=== PATIENT | male | born 1945 | race Caucasian/White ===

== ENCOUNTER 2018-12-24 11:07 | Observation (INO) ==
[2018-12-24] MEDS ORDERED: Ipratropium/Albuterol Neb 3 ML ONE (11:16)
[2018-12-24] MEDS ORDERED: Piperacillin/Tazobactam 3.375 GM in 0.9 % Sodium Chloride Mini Bag 100 ML IVPB ONE (11:22)
[2018-12-24] MEDS ORDERED: Ipratropium/Albuterol Neb 3 ML IH ONE (11:22)
[2018-12-24] MEDS ORDERED: Dexamethasone 4 MG/ML VIAL IVP ONE (11:22)
--- NOTE | 2018-12-24 11:25 | Emergency Department Note ---
Disposition Clinical Impression: Acute exacerbation of chronic obstructive airways disease, Hypoxemia, Respiratory distress Disposition: Admitted As Inpatient Condition: Fair Forms: ED Satisfaction Letter Time of Disposition: 12:41 General Adult HPI - General Chief complaint: ED Shortness of Breath/Dyspnea Stated complaint: MITCH Time Seen by Provider: 12/24/18 11:19 Source: patient Nursing Notes Reviewed: Yes Vital Signs Reviewed: Yes - History of Present Illness HPI Narrative: I did see the patient immediately upon arrival and also spoke with the patient's and he has a history of COPD and does use 3 L nasal cannula oxygen at home and presented with a reported oxygen saturation of 56% on 5 L nasal cannula as he has recently increased his oxygen use. He does have 3 days of shortness of breath gradually worsening constant worse with exertion and he denies orthopnea. Does have chronic lower extremity edema which is not worsened. No recent weight gain but has had some weight loss. Did have Doppler studies this spring to look for DVT which was negative. He was scheduled to see the elevator erector today. He denies any chest pain or tightness or discomfort or pressure. Does feel sinus drainage. No hemoptysis. Social history: Smoker Pain Scale: 0 - Related Data Home Medications Medication Instructions Recorded Confirmed Albuterol Neb [Proventil Neb] 2.5 mg IH Q6H 04/23/18 11/12/18 Albuterol Sulfate [Ventolin Hfa] 2 puff IH Q4H PRN 04/23/18 11/12/18 Atorvastatin [Lipitor] 80 mg PO HS 04/23/18 11/12/18 Fluticasone Propionate Nasal 27.5 mcg NS DAILY 04/23/18 11/12/18 [Flonase] Metoprolol Succinate 50 mg PO DAILY 04/23/18 11/12/18 Omeprazole [PriLOSEC] 40 mg PO DAILY 04/23/18 11/12/18 Tamsulosin [Flomax] 0.4 mg PO DAILY 07/14/18 11/12/18 Lisinopril [Zestril] 10 mg PO DAILY 11/12/18 11/12/18 Allergies Allergy/AdvReac Type Severity Reaction Status Date / Time No Known Allergies Allergy Verified 11/12/18 11:17 Review of Systems: Constitutional: No fever Vision: No blurred vision ENT: + rhinorrhea Respiratory: + cough Allergic: No allergies : No blood in urine GI: No blood in stool Hematologic: No new bruising Dermatologic: No skin rash Musculoskeletal: No pain in the extremities Neuro: No new numbness of the extremities Past Medical History - Past Medical History Medical history: Reports: COPD, coronary artery disease, hypertension, myocardial infarction, other Surgical history: Reports: colectomy, coronary bypass (CABG), other Psychiatric history: Reports: no psych history - Social History Smoking Status: Current every day smoker Smokeless Tobacco Status: No Alcohol use: Reports: none Drug use: Reports: none Physical Exam CONSTITUTIONAL: Alert and oriented X3, thin, moderate to severe respiratory distress with significant hypoxemia HEAD: Normocephalic; atraumatic. EYES: PERRL, no scleral icterus. NOSE: The nose is normal in appearance without rhinorrhea RESP: Normal chest excursion with respiration; breath sounds with bilateral symmetric coarse crackles and wheezing CARD: Regular rhythm, without murmurs, rub or gallop ABD: Non-distended; non-tender, soft,without rigidity, rebound or guarding SKIN: Normal for age and race; warm and dry; no apparent lesions EXTREMITIES: Pulses are 2 plus and equal times 4 extremities, bilateral lower extremity symmetric pretibial pitting peripheral edema, no calf muscle pain, no erythema or signs of infection - General General appearance: alert Course Vital Signs Temperature 97.6 F 12/24/18 11:12 Pulse Rate 70 12/24/18 11:12 Respiratory Rate 12/24/18 11:12 Blood Pressure 192/92 12/24/18 11:12 O2 Sat by Pulse Oximetry 100 12/24/18 11:12 Temperature 97.6 F 12/24/18 11:12 Pulse Rate 69 12/24/18 12:04 Respiratory Rate 12/24/18 12:04 Blood Pressure 164/94 12/24/18 12:04 O2 Sat by Pulse Oximetry 100 12/24/18 12:04 Oxygen Delivery Oxygen Delivery Simple Mask Medical Decision Making - MDM Narrative Medical decision making narrative: Symptoms most consistent with COPD exacerbation however on EKG there is evidence of new inferior ischemia compared to a previous EKG from 10/16/2012. Current EKG shows normal sinus rhythm with rate of [address] depression and T- wave inversion concerning for inferior ischemia. The patient receives 3 duo nebs, Decadron, and because he has been receiving antibiotics 2 or 3 times a month I did place him on Zosyn and vancomycin. No recent health admissions. The patient will be admitted to the hospital. On 100% nonrebreather mask he quickly improved to an oxygen saturation of 100% so we decreased and to 40% and he is still satting at 99%. Patient will be admitted. 1126 I did review the patient's previous record including the oncology notes, I have reviewed the patient's labs and chest x-ray showing infiltrate versus atelectasis. The patient's troponin is negative. Renal function is fine. BNP is elevated however he said his lower extremity swelling is chronic and the yosef ent does not have other findings concerning for congestive heart failure. I am not able to find a recent echocardiogram in the record however this is something that certainly could be further evaluated in the hospital and the patient will be admitted and I did speak with the hospitalist who accepted the patient for admission. TheentireclinicalpictureismostsuggestiveofCOPDexacerbationparticularly withhispostnasaldripandcoughandhypoxemiasowewilladmitandtrytoimprovethepatient's symptoms.Icheckedonhermultipletimesandheisimproved. 1240 - Medical Records Medical records reviewed: Yes I reviewed the patient's medical records. - Lab Data Lab results reviewed: Yes I reviewed the patient's lab results. Result diagrams: 12/24/18 11:15 12/24/18 11:15 Lab Results 12/24/18 12/24/18 12/24/18 Range/Units 11:15 11:15 11:15 WBC 4.1 L (4.3-11.1) K/mcL RBC 4.65 (4.19-5.50) M/mcL Hgb 13.1 (12.9-16.9) g/dL Hct 42.6 (37.5-50.1) % MCV 91.6 (83.0-100.0) fL MCH 28.2 (28.0-33.3) pg MCHC 30.8 L (31.6-35.5) g/dL RDW 13.6 (11.5-14.5) % Plt Count 106 L (140-400) K/mcL MPV 11.4 (9.4-12.4) fL Sodium 141 (136-145) mEq/L Potassium 4.8 (3.5-5.1) mEq/L Chloride 95 L (98-107) mEq/L Carbon Dioxide 43 H* (23-29) mEq/L BUN 19 (8-23) mg/dL Creatinine 1.16 (0.70-1.30) mg/dL Est GFR ( Amer) > 60 (> 60) Est GFR (Non-Af Amer) > 60 (> 60) BUN/Creatinine Ratio 16 (6-26) Glucose 137 H (70-105) mg/dL Calculated Osmolality 296 (280-300) Calcium 9.5 (8.6-10.3) mg/dL Troponin I < 0.03 (< 0.04) ng/mL B-Natriuretic Peptide 1111 H (Less than 100) pg/mL - Radiology Data Radiology results reviewed: Yes I reviewed the patient's radiology results. Critical Care Time Critical Care Time: Yes Total Critical Care Time: 30 Attestation: 30 minutes of critical care time was spent with this patient with severe respiratory distress, hypoxemia with an oxygen saturation of 56% even while on 5 L nasal cannula and assessment of the patient's test results, repeated visits to see the patient, discussion with hospitalist
[2018-12-24 11:32] LABS: Hematocrit 42.6 % (37.5-50.1); Hemoglobin 13.1 g/dL (12.9-16.9); Mean Corpuscular HGB Conc 30.8 g/dL (31.6-35.5); Mean Corpuscular Hemoglobin 28.2 pg (28.0-33.3); Mean Corpuscular Volume 91.6 fL (83.0-100.0); Mean Platelet Volume 11.4 fL (9.4-12.4); Platelet Count 106 K/mcL (140-400); Red Blood Count 4.65 M/mcL (4.19-5.50); Red Cell Distribution Width 13.6 % (11.5-14.5); White Blood Count 4.1 K/mcL (4.3-11.1)
[2018-12-24 12:03] LABS: BUN/Creatinine Ratio 16 (6-26); Blood Urea Nitrogen 19 mg/dL (8-23); Calcium 9.5 mg/dL (8.6-10.3); Carbon Dioxide 43 mEq/L (23-29); Chloride 95 mEq/L (98-107); Glucose 137 mg/dL (70-105); Osmolality,Calculated 296 (280-300); Potassium 4.8 mEq/L (3.5-5.1); Sodium 141 mEq/L (136-145); Troponin I < 0.03 ng/mL (< 0.04); eGFR For African Americans > 60 (> 60); eGFR For Non-African Americans > 60 (> 60)
[2018-12-24] MEDS ORDERED: Naloxone 0.4 MG/ML INJ IVP PRN (14:05)
[2018-12-24] MEDS ORDERED: Ondansetron 4 MG/2 ML VIAL IVP PRN (14:05)
[2018-12-24] MEDS ORDERED: *HR* Promethazine 25 MG/ML VIAL IVP PRN ×2 (14:05→14:16)
[2018-12-24] MEDS ORDERED: Mag Hydrox/Al Hydrox/Simeth 30 ML UDC PO PRN (14:05)
[2018-12-24] MEDS ORDERED: MOM Conc 10 ML UD.LIQ PO PRN (14:05)
[2018-12-24] MEDS ORDERED: Ipratropium/Albuterol Neb 3 ML IH PRN (14:10)
--- NOTE | 2018-12-24 14:56 | Internal Med History&Physical ---
Date of Encounter: 12/24/18 Time of Encounter: 14:55 Internal Medicine - H&P: HPI Chief complaint: SOB Admitted From: Home Plans for Post Hospital Care: Home History of present illness: Mr. Macias is a 73 year old male 's past medical history of COPD, CAD status post CABG, hypertension, and chronic sinusitis presented with 4 day history of some shortness of breath. He has history of COPD and a contralateral treated with albuterol inhaler plus home oxygen. He also reported history of CAD status post CABG. His symptoms started insidiously, with absence of chest pain, cough, sputum production, palpitation, lightheadedness, or syncope. He also reported absence of fever, chills, or night sweats. He had chronic leg swelling which has been slightly worsened than usual in the past couple days. He denies history of heart failure and an never been worked up for congestive heart regular. In the ED, his vital signs was notable for slightly elevated CO2, negative troponin, significantly elevated BNP. Chest x-ray revealed possible infiltrate with bilateral small pleural effusion. Patient received IV antibiotics, and will be admitted for further evaluation. CODE STATUS discussed with patient, he wishes to be full code. Past Med Surg Social Fam HX - Past Medical History Medical history: COPD, coronary artery disease, hypertension, myocardial infarction, other Psychiatric history: no psych history - Past Surgical History Surgical History: colectomy, coronary bypass (CABG), other Additional surgical history: triple bypass 2012 - Social History Smoking Status: Current every day smoker Smokeless Tobacco Status: No Alcohol use: none Drug use: none Internal Medicine - H&P: Meds Albuterol Neb [Proventil Neb] 2.5 mg IH Q6H 04/23/18 [History] Albuterol Sulfate [Ventolin Hfa] 2 puff IH Q4H PRN 04/23/18 [History] Atorvastatin [Lipitor] 80 mg PO HS 04/23/18 [History] Fluticasone Propionate Nasal [Flonase] 27.5 mcg NS DAILY 04/23/18 [History] Metoprolol Succinate 50 mg PO DAILY 04/23/18 [History] Omeprazole [PriLOSEC] 40 mg PO DAILY 04/23/18 [History] Tamsulosin [Flomax] 0.4 mg PO DAILY 07/14/18 [History] Lisinopril [Zestril] 10 mg PO DAILY 11/12/18 [History] Aspirin [Lo-Dose Aspirin EC] 81 mg pe PO DAILY 12/24/18 [History] Allergy/AdvReac Type Severity Reaction Status Date / Time No Known Allergies Allergy Verified 11/12/18 11:17 All Systems PM: A 10-system review of systems was performed and is negative for pertinent find ings except as documented above in the HPI. Review of systems: REVIEW OF SYSTEMS: CONSTITUTIONAL: No weight loss, fever, chills, weakness or fatigue. HEENT: Eyes: No visual loss, blurred vision, double vision or yellow sclerae. Ears, Nose, Throat: No hearing loss, sneezing, congestion, runny nose or sore throat. SKIN: No rash or itching. CARDIOVASCULAR: No chest pain, chest pressure or chest discomfort. No palpitations or edema. RESPIRATORY: see HPI. GASTROINTESTINAL: No anorexia, nausea, vomiting or diarrhea. No abdominal pain or blood. GENITOURINARY: No dysuria, urgency, or frequency. NEUROLOGICAL: No headache, dizziness, syncope, paralysis, ataxia, numbness or tingling in the extremities. No change in bowel or bladder control. MUSCULOSKELETAL: No muscle, back pain, joint pain or stiffness. HEMATOLOGIC: No anemia, bleeding or bruising. LYMPHATICS: No enlarged nodes. No history of splenectomy. PSYCHIATRIC: No history of depression or anxiety. ENDOCRINOLOGIC: No reports of sweating, cold or heat intolerance. No polyuria or polydipsia. - Constitutional Vitals: Temp Pulse Resp BP Pulse Ox 97.8 F 74 15 147/73 97 12/24/18 14:09 12/24/18 14:09 12/24/18 14:09 12/24/18 14:09 12/24/18 14:09 General appearance: Present: A&O X 3 Exam: PHYSICAL EXAMINATION: GENERAL APPEARANCE: The patient is alert, oriented and in no acute distress. HEENT: Head is normocephalic. The sinuses are nontender. Pupils are equal and reactive. The nares are patent. Oropharynx clear without lesions. NECK: Supple without lymphadenopathy. HEART: Regular rate and rhythm. LUNGS: No crackles or wheezes are heard. ABDOMEN: Soft, nontender, nondistended with good bowel sounds heard. Inguinal area is normal. EXTREMITIES: 2+ pitting edema at both legs. NEUROLOGICAL: Gross nonfocal. SKIN: Warm and dry without any rash. Internal Med - H&P Results - Labs CBC & Chem 7: 12/24/18 11:15 12/24/18 11:15 Labs: Short CBC 12/24/18 Range/Units 11:15 WBC 4.1 L (4.3-11.1) K/mcL Hgb 13.1 (12.9-16.9) g/dL Hct 42.6 (37.5-50.1) % Plt Count 106 L (140-400) K/mcL BMP 12/24/18 11:15 Sodium 141 Potassium 4.8 Chloride 95 L Carbon Dioxide 43 H* BUN 19 Creatinine 1.16 Glucose 137 H Calcium 9.5 Cardiac Enzymes 12/24/18 Range/Units 11:15 Troponin I < 0.03 (< 0.04) ng/mL - Impressions ITS Impressions Chest X-Ray 12/24/18 11:21 IMPRESSION: Mild patchy/streaky bibasilar opacities concerning for atelectasis or developing infiltrates along with superimposed small bilateral pleural effusions, new from prior CT chest 07/28/2018. Clinical correlation and continued follow-up suggested. Small bilateral pulmonary nodules noted on prior CT chest not well demonstrated on this portable chest x-ray. Reference to the prior exam can be made for additional information and management recommendations. COPD. D/ / 12/24/2018 11:39:22 Adriano Saxena MD / [email or web address] Interpreting Provider: Adriano Saxena MD - Assessment and Plan (1) Acute respiratory failure Current Visit: Yes Status: Acute Assessment and plan: 73-year-old male with history of COPD, CAD status post CABG, and hypertension presented with 4 day history of acute dyspnea on exertion with associated bilateral leg swelling. Labs showed a significantly elevated CO2 and BNP, chest x-ray showed possible infiltrate with small bilateral pleural effusion. He will have a history of COPD, coronary treated with albuterol inhaler plus home oxygen. He reported chronic bilateral leg swelling but denies history of heart failure. - We will order a stat ABG, given significantly elevated CO2 level, and he only takes albuterol and oxygen at home, his COPD likely undertreated. We will start the patient on DuoNeb with scheduled dose and as needed dose, started patient on IV steroids, empirically started on IV antibiotics pending infection workup. He also likely will be placed on maintenance treatment such as Symbicort before discharge. He will also be benefited from follow up with pulmonology as outpatient. - Given significantly elevated BNP, we will will order echocardiogram to rule out undiagnosed heart failure. However, on physical exam, his lung sounds seem clear, in that case, workup for pulmonary hypertension will be warranted as well. - We will also order BiPAP scheduled and as needed. Qualifiers: Respiratory failure complication: hypoxia and hypercapnia Qualified Code(s): J96.01 - Acute respiratory failure with hypoxia; J96.02 - Acute respiratory failure with hypercapnia (2) Acute exacerbation of chronic obstructive airways disease Current Visit: Yes Status: Acute Assessment and plan: Same as above. (3) CAD (coronary artery disease) Current Visit: No Status: Acute Assessment and plan: Patient has no chest pain, first set of troponin negative, we will continue cycling troponin, telemetry monitoring, EKG as needed. Continue home medications Qualifiers: Coronary Disease-Associated Artery/Lesion type: [place] artery [place] vs. transplanted heart: [place] heart Associated angina: without angina Qualified Code(s): I25.10 - Atherosclerotic heart disease of [place] coronary artery without angina pectoris (4) HTN (hypertension) Current Visit: No Status: Chronic Assessment and plan: Continue home medication, adjust the dose if indicated. Qualifiers: Hypertension type: essential hypertension Qualified Code(s): I10 - Essential (primary) hypertension (5) DVT prophylaxis Current Visit: Yes Status: Acute Assessment and plan: Heparin subcutaneous. - Time Spent With Patient Total time spent is greater than 50% in coordination of care (as documented) at patient's floor/unit and/or counseling patient: Greater than 35 minutes
[2018-12-24] MEDS ORDERED: Azithromycin 500 MG in D5% in Water 250 ML IVPB SCH (15:00)
[2018-12-24] MEDS ORDERED: cefTRIAXone 2,000 MG in Water for inj. (sterile) 20 ML IVP SCH (15:00)
[2018-12-24] MEDS: MethylPREDNISolone 40 MG/ML VIAL IVP SCH (15:41)
[2018-12-24] MEDS: Furosemide 20 MG/2 ML VIAL IVP SCH (15:42)
[2018-12-24] MEDS: Ipratropium/Albuterol Neb 3 ML IH SCH ×3 (16:04→23:29)
[2018-12-24 16:07] LABS: ABG Base Excess 11 mEq/L (-2 to 3); ABG HCO3 39 mEq/L (21-27); ABG Oxygen Saturation 96 % (95-98); ABG PCO2 67 mmHg (35-45); ABG PH 7.37 pH Units (7.32-7.45); ABG PO2 87 mmHg (85-104); ABG TCO2 41 mEq/L (20-26)
[2018-12-24 16:37] LABS: Bilirubin,Urine Negative (Negative); Blood,Urine Small (Negative); Clarity,Urine Clear (Clear); Color,Urine Yellow (Yellow); Glucose,Urine (UA) 100 mg/dL (Normal); Ketones,Urine Negative (Negative); Leukocyte Esterase,Urine Negative (Negative); Nitrite,Urine Negative (Negative); Protein,Urine >=300 mg/dL (Neg-Trace); Specific Gravity,Urine 1.028 (1.010-1.025); Urobilinogen,Urine Normal (Normal)
[2018-12-24] MEDS: *HR* Heparin 5,000 UNIT/ML VIAL SQ SCH (16:47)
[2018-12-24] MEDS ORDERED: Furosemide 20 MG/2 ML VIAL IVP SCH (21:00)
[2018-12-25] MEDS: MethylPREDNISolone 40 MG/ML VIAL IVP SCH ×3 (03:24→16:04)
[2018-12-25] MEDS: Ipratropium/Albuterol Neb 3 ML IH SCH ×5 (03:48→19:43)
[2018-12-25 05:24] LABS: Mean Platelet Volume 11.8 fL (9.4-12.4); Red Cell Distribution Width 13.2 % (11.5-14.5)
[2018-12-25 05:26] LABS: Hematocrit 32.6 % (37.5-50.1); Hemoglobin 10.6 g/dL (12.9-16.9); Lymphocytes # 0.2 K/mcL (0.6-4.6); Lymphocytes % 7.7 %; Mean Corpuscular HGB Conc 32.5 g/dL (31.6-35.5); Mean Corpuscular Hemoglobin 28.8 pg (28.0-33.3); Mean Corpuscular Volume 88.6 fL (83.0-100.0); Monocytes # 0.1 K/mcL (0.0-1.3); Monocytes % 2.9 %; Neutrophils # 1.9 K/mcL (1.6-8.9); Red Blood Count 3.68 M/mcL (4.19-5.50); Segmented Neutrophils % 89.4 %; White Blood Count 2.1 K/mcL (4.3-11.1)
[2018-12-25 05:29] LABS: Platelet Count 94 K/mcL (140-400)
[2018-12-25 05:43] LABS: Alanine Aminotransferase 11 Units/L (7-52); Albumin 2.9 g/dL (3.5-5.7); Albumin/Globulin Ratio 1.5 (1.1-2.2); Alkaline Phosphatase 71 Units/L (34-104); Aspartate Amino Transferase 11 Units/L (13-39); BUN/Creatinine Ratio 18 (6-26); Bilirubin,Total 0.4 mg/dL (0.3-1.0); Blood Urea Nitrogen 25 mg/dL (8-23); Calcium 8.3 mg/dL (8.6-10.3); Carbon Dioxide 39 mEq/L (23-29); Chloride 92 mEq/L (98-107); Chol/HDL Ratio 3.6 (0-4.9); Cholesterol 146 mg/dL (< 200); Globulin 1.9 g/dL (2.4-3.5); Glucose 145 mg/dL (70-105); HDL Cholesterol 41 mg/dL (40-59); LDL Cholesterol,Calculated 90 mg/dL (0-99); Magnesium 1.7 mg/dL (1.6-2.6); Osmolality,Calculated 291 (280-300); Potassium 4.5 mEq/L (3.5-5.1); Sodium 137 mEq/L (136-145); Total Protein 4.8 g/dL (6.4-8.9); Triglycerides 75 mg/dL (< 150); eGFR For African Americans > 60 (> 60); eGFR For Non-African Americans 51 (> 60)
[2018-12-25] MEDS: *HR* Heparin 5,000 UNIT/ML VIAL SQ SCH ×2 (05:45→16:04)
[2018-12-25] MEDS: Metoprolol XL (24 HR) Succ 50 MG TAB.ER.24H PO SCH (07:12)
[2018-12-25] MEDS: Aspirin Enteric Coated 81 MG Tablet PO SCH (07:12)
[2018-12-25] MEDS: Furosemide 20 MG/2 ML VIAL IVP SCH (07:13)
[2018-12-25] MEDS: Fluticasone Propionate Nasal 50 MCG/SPRAY BOTTLE NS SCH (07:15)
[2018-12-25] MEDS ORDERED: Albuterol 2.5 MG/3 ML NEBULIZER IH PRN (07:26)
[2018-12-25] MEDS ORDERED: Azithromycin 500 MG in D5% in Water 250 ML IVPB ONE (09:00)
[2018-12-25] MEDS ORDERED: Azithromycin 250 MG TABLET PO SCH (09:00)
[2018-12-25] MEDS ORDERED: Fluticasone Propionate Nasal 50 MCG/SPRAY BOTTLE NS SCH (09:00)
[2018-12-25] MEDS: cefTRIAXone 2,000 MG in Water for inj. (sterile) 20 ML IVP SCH (09:57)
--- NOTE | 2018-12-25 10:43 | Internal Med Progress Note ---
Hospitalist Progress Note - Encounter Date of Encounter: 12/25/18 Time of Encounter: 09:35 - Subjective Interval History: Patient feels much better today. Denies any chest pain or palpitations. Shortness of breath is improving. No fevers or chills reported overnight. - Exam Vitals: Temp Pulse Resp BP Pulse Ox 98.1 F 71 20 157/81 98 12/25/18 07:30 12/25/18 07:30 12/25/18 07:30 12/25/18 07:30 12/25/18 07:30 Exam: General: Patient is alert, no acute distress, oriented x 3 Respiratory: Coarse breath sounds bilaterally. End-expiratory wheezing present Cardiovascular: Regular rate and rhythm. s1 and s2 normal No clicks, rubs, gallops, or murmurs. Bilateral pedal edema Abdomen: Abdomen is soft, nontender. Bowel sounds are present Musculoskeletal: Spontaneously moving all extremities Skin: warm, dry, intact. Neuro: Alert oriented x 3 normal cranial nerves, no focal deficits - Assessment and Plan (1) Acute exacerbation of chronic obstructive airways disease Current Visit: Yes Status: Acute (2) CAD (coronary artery disease) Current Visit: No Status: Acute (3) HTN (hypertension) Current Visit: No Status: Chronic (4) Acute respiratory failure Current Visit: Yes Status: Acute (5) DVT prophylaxis Current Visit: Yes Status: Acute DVT Prophylaxis: Continue subcutaneous heparin - Summary of Assessment and Plan Summary of Assessment and Plan: Acute on chronic respiratory failure with hypoxia and hypercapnia: Continue trice ting underlying conditions including COPD. Continue bronchodilators and O2 supplementation. Acute COPD exacerbation: Continue steroids, bronchodilators. And antibiotics. Pneumonia: Possible pneumonia based on chest x-ray findings. We will check urine Legionella and streptococcal antigens. Follow cultures. Unspecified organism. Mild acute kidney injury: Patient has a creatinine of 1.37. Elevated from baseline most likely related to use of Lasix. We will hold Lasix for today and reassess in the morning. Bilateral pedal edema: Improved after patient received Lasix yesterday. Awaiting echocardiogram. Moderate risk for complications. - Time Spent with Patient Total time spent is greater than 50% in coordination of care (as documented) at patient's floor/unit and/or counseling patient: Internal Medicine: Result - Labs CBC & Chem 7: 12/25/18 04:50 12/25/18 04:50 Labs: Short CBC 12/24/18 12/25/18 Range/Units 11:15 04:50 WBC 4.1 L 2.1 L (4.3-11.1) K/mcL Hgb 13.1 10.6 L D (12.9-16.9) g/dL Hct 42.6 32.6 L (37.5-50.1) % Plt Count 106 L 94 L (140-400) K/mcL Neutrophils # 1.9 (1.6-8.9) K/mcL BMP 12/24/18 12/25/18 11:15 04:50 Sodium 141 137 Potassium 4.8 4.5 Chloride 95 L 92 L Carbon Dioxide 43 H* 39 H BUN 19 25 H Creatinine 1.16 1.37 H Glucose 137 H 145 H Calcium 9.5 8.3 L Cardiac Enzymes 12/24/18 12/24/18 12/24/18 Range/Units 11:15 16:58 22:40 Troponin I < 0.03 < 0.03 < 0.03 (< 0.04) ng/mL Liver Function 12/25/18 Range/Units 04:50 Total Bilirubin 0.4 (0.3-1.0) mg/dL AST 11 L (13-39) Units/L ALT 11 (7-52) Units/L Alkaline Phosphatase 71 (34-104) Units/L Albumin 2.9 L (3.5-5.7) g/dL Urine 12/24/18 Range/Units 16:15 Urine Color Yellow (Yellow) Urine Clarity Clear (Clear) Urine pH 6.0 (5.0-8.0) pH Units Ur Specific [place] 1.028 H (1.010-1.025) Urine Protein >=300 H (Neg-Trace) mg/dL Urine Glucose (UA) 100 H (Normal) mg/dL - ABG Interpretation ABG results: ABG ABG pH 7.37 pH Units (7.32-7.45) 12/24/18 16:04 ABG pCO2 67 mmHg (35-45) H 12/24/18 16:04 ABG pO2 87 mmHg (85-104) 12/24/18 16:04 ABG O2 Saturation 96 % (95-98) 12/24/18 16:04 - Impressions Impressions Chest X-Ray 12/24/18 11:21 IMPRESSION: Mild patchy/streaky bibasilar opacities concerning for atelectasis or developing infiltrates along with superimposed small bilateral pleural effusions, new from prior CT chest 07/28/2018. Clinical correlation and continued follow-up suggested. Small bilateral pulmonary nodules noted on prior CT chest not well demonstrated on this portable chest x-ray. Reference to the prior exam can be made for additional information and management recommendations. COPD. D/ / 12/24/2018 11:39:22 Adriano Saxena MD / [email or web address] Interpreting Provider: Adriano Saxena MD Consult Discharge Plan - Plan Referrals: Dario Guerrero Jr, MD [Primary Care Provider] - (2) CAD (coronary artery disease) Qualifiers: Coronary Disease-Associated Artery/Lesion type: [place] artery [place] vs. transplanted heart: [place] heart Associated angina: without angina Qualified Code(s): I25.10 - Atherosclerotic heart disease of [place] coronary artery without angina pectoris (3) HTN (hypertension) Qualifiers: Hypertension type: essential hypertension Qualified Code(s): I10 - Essential (primary) hypertension (4) Acute respiratory failure Qualifiers: Respiratory failure complication: hypoxia and hypercapnia Qualified Code(s): J96.01 - Acute respiratory failure with hypoxia; J96.02 - Acute respiratory failure with hypercapnia
--- NOTE | 2018-12-25 13:35 | Electrocardiograph Report ---
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
[2018-12-25] MEDS: Budesonide/Formoterol 160/4.5 1 PUFF INH IH SCH (19:43)
[2018-12-26] MEDS: MethylPREDNISolone 40 MG/ML VIAL IVP SCH ×2 (00:05→07:09)
[2018-12-26] MEDS: Ipratropium/Albuterol Neb 3 ML IH SCH ×4 (00:11→10:44)
[2018-12-26 05:48] LABS: Hematocrit 31.4 % (37.5-50.1); Hemoglobin 10.4 g/dL (12.9-16.9); Immature Granulocytes % 0.5 % (0-4); Lymphocytes # 0.2 K/mcL (0.6-4.6); Lymphocytes % 4.4 %; Mean Corpuscular HGB Conc 33.1 g/dL (31.6-35.5); Mean Corpuscular Volume 87.5 fL (83.0-100.0); Monocytes # 0.1 K/mcL (0.0-1.3); Monocytes % 2.3 %; Red Blood Count 3.59 M/mcL (4.19-5.50); Red Cell Distribution Width 13.5 % (11.5-14.5); Segmented Neutrophils % 92.8 %
[2018-12-26 05:49] LABS: Neutrophils # 4.1 K/mcL (1.6-8.9); Platelet Count 95 K/mcL (140-400); White Blood Count 4.4 K/mcL (4.3-11.1)
[2018-12-26] MEDS: *HR* Heparin 5,000 UNIT/ML VIAL SQ SCH (06:03)
[2018-12-26 06:08] LABS: BUN/Creatinine Ratio 23 (6-26); Blood Urea Nitrogen 30 mg/dL (8-23); Calcium 8.3 mg/dL (8.6-10.3); Carbon Dioxide 42 mEq/L (23-29); Chloride 92 mEq/L (98-107); Glucose 149 mg/dL (70-105); Osmolality,Calculated 295 (280-300); Potassium 4.4 mEq/L (3.5-5.1); Sodium 138 mEq/L (136-145); eGFR For African Americans > 60 (> 60); eGFR For Non-African Americans 55 (> 60)
[2018-12-26 07:02] VITALS: BP 166/87
[2018-12-26] MEDS: Budesonide/Formoterol 160/4.5 1 PUFF INH IH SCH (07:05)
[2018-12-26] MEDS: Aspirin Enteric Coated 81 MG Tablet PO SCH (07:08)
[2018-12-26] MEDS: Metoprolol XL (24 HR) Succ 50 MG TAB.ER.24H PO SCH (07:09)
[2018-12-26] MEDS: cefTRIAXone 2,000 MG in Water for inj. (sterile) 20 ML IVP SCH (07:10)
[2018-12-26] MEDS: Fluticasone Propionate Nasal 50 MCG/SPRAY BOTTLE NS SCH (07:10)
[2018-12-26] MEDS ORDERED: Azithromycin 250 MG TABLET PO SCH (09:00)
--- NOTE | 2018-12-26 10:50 | Discharge Summary ---
- NOTES TO OUTPATIENT PROVIDER Notes to Outpatient Provider: Patient with a history of COPD, coronary artery disease status post CABG, hypertension and chronic sinusitis was hospitalized here with acute on chronic hypoxic and hypercapnic respiratory failure related to COPD exacerbation. Patient was also having bilateral pedal edema and chest x-ray showed possible infiltrates and small bilateral pleural effusions. He was treated for COPD exacerbation/pneumonia with antibiotics, bronchodilators and steroids. He also received intravenous Lasix for his pedal edema. His symptoms have significantly improved now and patient is back on his baseline home oxygen. He is feeling much better. 2-D echocardiogram done here showed that patient has normal ejection fraction but moderate LV diastolic dysfunction. Patient has been placed on Lasix and will continue to take this at home. He does have chronic kidney disease stage III and follows up with nephrology. He is clinically stable to be discharged home today. Orders not resulted at time of discharge: Pending orders 12/25/18 13:08 Legionella Antigen [RM] Routine S. Pneumoniae Antigen [RM] Routine 12/27/18 04:00 Basic Metabolic Panel AM 0400 Complete Blood Count [HEME] AM 0400 12/28/18 04:00 Basic Metabolic Panel AM 0400 Complete Blood Count [HEME] AM 0400 Date of Encounter: 12/26/18 Time of Encounter: 10:48 - Discharge Diagnosis (1) Acute exacerbation of chronic obstructive airways disease Priority: Primary Status: Acute (2) CAD (coronary artery disease) Priority: Secondary Status: Acute Qualifiers: Coronary Disease-Associated Artery/Lesion type: [place] artery [place] vs. transplanted heart: [place] heart Associated angina: without angina Qualified Code(s): I25.10 - Atherosclerotic heart disease of [place] coronary artery without angina pectoris (3) HTN (hypertension) Priority: Secondary Status: Chronic Qualifiers: Hypertension type: essential hypertension Qualified Code(s): I10 - Essential (primary) hypertension (4) Acute respiratory failure Priority: Secondary Status: Acute Qualifiers: Respiratory failure complication: hypoxia and hypercapnia Qualified Code(s) : J96.01 - Acute respiratory failure with hypoxia; J96.02 - Acute respiratory failure with hypercapnia (5) DVT prophylaxis Priority: Secondary Status: Acute (6) Acute on chronic diastolic (congestive) heart failure Priority: Secondary Status: Chronic (7) Chronic kidney disease, stage III (moderate) Priority: Secondary Status: Chronic Hospital course: Mr. Macias is a 73 year old male Patient with a history of COPD, coronary artery disease status post CABG, hypertension and chronic sinusitis was hospitalized here with acute on chronic hypoxic and hypercapnic respiratory failure related to COPD exacerbation. Patient was also having bilateral pedal edema and chest x-ray showed possible infiltrates and small bilateral pleural effusions. He was treated for COPD exacerbation/pneumonia with antibiotics, bronchodilators and steroids. He also received intravenous Lasix for his pedal edema. His symptoms have significantly improved now and patient is back on his baseline home oxygen. He is feeling much better. 2-D echocardiogram done here showed that patient has normal ejection fraction but moderate LV diastolic dysfunction. Patient has been placed on Lasix and will continue to take this at home. He does have chronic kidney disease stage III and follows up with nephrology. He is clinically stable to be discharged home today. Discharge discussed with: patient - Time Spent with Patient Total time spent providing and/or coordinating discharge services: Time spent: Less than 30 minutes (25 min) - Discharge Medications Prescriptions: New Cefdinir [Omnicef] 300 mg PO BID #8 capsule predniSONE [PredniSONE] 10 mg PO DAILY #20 tablet Azithromycin [Zithromax Tri-Morro] 500 mg PO DAILY #3 tablet Continued Albuterol Sulfate [Ventolin Hfa] 2 puff IH Q4H PRN PRN Reason: Shortness Of Breath Albuterol Neb [Proventil Neb] 2.5 mg IH QID Metoprolol Succinate 50 mg PO QAM Omeprazole [PriLOSEC] 40 mg PO QAM Tamsulosin [Flomax] 0.4 mg PO QAM Lisinopril [Zestril] 10 mg PO QAM Aspirin [Lo-Dose Aspirin EC] 81 mg PO QAM Atorvastatin Calcium [Lipitor] 80 mg PO QAM Fluticasone Furoate [Flonase Sensimist] 1 spray NS DAILY PRN PRN Reason: Allergy Symptoms Home Medications: Albuterol Neb [Proventil Neb] 2.5 mg IH QID 04/23/18 [History] Albuterol Sulfate [Ventolin Hfa] 2 puff IH Q4H PRN 04/23/18 [History] Metoprolol Succinate 50 mg PO QAM 04/23/18 [History] Omeprazole [PriLOSEC] 40 mg PO QAM 11/21/18 [History] Tamsulosin [Flomax] 0.4 mg PO QAM 07/14/18 [History] Lisinopril [Zestril] 10 mg PO QAM 11/12/18 [History] Aspirin [Lo-Dose Aspirin EC] 81 mg PO QAM 12/24/18 [History] Atorvastatin Calcium [Lipitor] 80 mg PO QAM 12/25/18 [History] Fluticasone Furoate [Flonase Sensimist] 1 spray NS DAILY PRN 12/25/18 [History] Azithromycin [Zithromax Tri-Morro] 500 mg PO DAILY #3 tablet 12/26/18 [Rx] Cefdinir [Omnicef] 300 mg PO BID #8 capsule 12/26/18 [Rx] predniSONE [PredniSONE] 10 mg PO DAILY #20 tablet 12/26/18 [Rx] Allergies/Adverse Reactions: Allergy/AdvReac Type Severity Reaction Status Date / Time "GOOTENGOKEN" Allergy See Uncoded 12/25/18 17:09 Comments Date of admission: 12/24/18 12:42 Primary care physician: Dario Guerrero Jr, MD Consults: 12/25/18 07:54 Consult to Nurse Navigator [CONS] Routine Comment: copd Discharging clinician: Awa Mathews Anticipated date of discharge: 12/26/18 - Constitutional Vitals: Temp Pulse Resp BP Pulse Ox 97.9 F 77 18 166/87 95 12/26/18 06:59 12/26/18 06:59 12/26/18 10:47 12/26/18 06:59 12/26/18 10:47 General appearance: Present: A&O X 3 Exam: General: Patient is alert, no acute distress, oriented x 3 Respiratory: Prolonged expiratory phase, mild bilateral end expiratory wheezing Cardiovascular: Regular rate and rhythm. s1 and s2 normal No clicks, rubs, gallops, or murmurs. Bilateral pedal edema Abdomen: Abdomen is soft, nontender. Bowel sounds are present Musculoskeletal: Spontaneously moving all extremities Skin: warm, dry, intact. Neuro: Alert oriented x 3 normal cranial nerves, no focal deficits - Patient Status Disposition: Home, Self-Care Condition: Good Functional capacity at discharge: uses cane/walker Overall status at discharge: patient is progressing back to baseline - Ambulatory Orders Ambulatory Orders: Basic Metabolic Panel [CHEM] Time Frame: 1 Week, Facility: [facility], Location: Lab - Discharge Instructions Instructions: Chronic Obstructive Pulmonary Disease (DC), Acute Respiratory Distress Syndrome (DC), Chronic Hypertension (DC), Heart Failure (DC) Follow Up With: Dario Guerrero Jr, MD [Primary Care Provider] - (in 1week) Bon Ashby DO [Partnered Physician] - (in 1week) - Diet and Activity Activity: increase activity as tolerated Diet: low fat, low cholesterol, low salt diet
[2018-12-26] MEDS ORDERED: predniSONE 20 MG TABLET PO SCH (16:00)
[2018-12-27] MEDS ORDERED: Furosemide 40 MG TABLET PO SCH (09:00)
== END 2018-12-26 12:04 | disposition home or self-care (01) ==
LOC: 2ANU 11:07 → EMEROOARM 11:07 → 2ANU 13:45
PROVIDERS: ADMIT Internal Medicine; ATTEND Internal Medicine

== ENCOUNTER 2019-02-02 07:17 | Inpatient (IN) ==
[2019-02-02] MEDS ORDERED: Ipratropium/Albuterol Neb 3 ML ONE (07:23)
[2019-02-02] MEDS ORDERED: methylPREDNISolone 125 MG/2 ML VIAL IVP ONE (07:23)
[2019-02-02] MEDS ORDERED: Ipratropium/Albuterol Neb 3 ML IH ONE (07:23)
--- NOTE | 2019-02-02 07:28 | Emergency Department Note ---
Disposition Clinical Impression: COPD exacerbation, Hypernatremia Pneumonia Qualifiers: Pneumonia type: due to unspecified organism Laterality: right Lung location: lower lobe of lung Qualified Code(s): J18.1 - Lobar pneumonia, unspecified organism Disposition: Admitted As Inpatient Time of Disposition: 08:46 General Adult HPI - General Stated complaint: MITCH Time Seen by Provider: 02/02/19 07:20 Source: patient, EMS Mode of arrival: EMS Limitations: no limitations Nursing Notes Reviewed: Yes Vital Signs Reviewed: Yes - History of Present Illness HPI Narrative: 73M with PMHx of CHF with EF of 50%, COPD on 3L home O2, HTN and CAD with triple bypass presents emergency department via EMS with the complaint of shortness of breath. Patient woke up this morning and was feeling significantly short of breath on his home oxygen and cardiac EMS. Upon arrival EMS state the patient was satting 81% and appeared to be in moderate respiratory distress. They placed him on nonrebreather at 15 L which brought his oxygen up to 100%. Patient is still feeling short of breath at this time. He states he has not missed any of his at home treatments for CHF or COPD. He denies fever, chills, cough, chest pain/pressure, abdominal pain, nausea and vomiting. - Related Data Home Medications Medication Instructions Recorded Confirmed Albuterol Neb [Proventil Neb] 2.5 mg IH QID 04/23/18 12/25/18 Albuterol Sulfate [Ventolin Hfa] 2 puff IH Q4H PRN 04/23/18 12/25/18 Metoprolol Succinate 50 mg PO QAM 04/23/18 12/25/18 Omeprazole [PriLOSEC] 40 mg PO QAM 04/23/18 12/25/18 Tamsulosin [Flomax] 0.4 mg PO QAM 07/14/18 12/25/18 Lisinopril [Zestril] 10 mg PO QAM 11/12/18 12/25/18 Aspirin [Lo-Dose Aspirin EC] 81 mg PO QAM 12/24/18 12/25/18 Atorvastatin Calcium [Lipitor] 80 mg PO QAM 12/25/18 12/25/18 Fluticasone Furoate [Flonase 1 spray NS DAILY PRN 12/25/18 12/25/18 Sensimist] Previous Rx's Medication Instructions Recorded Azithromycin [Zithromax Tri-Morro] 500 mg PO DAILY #3 tablet 12/26/18 Cefdinir [Omnicef] 300 mg PO BID #8 capsule 12/26/18 predniSONE [PredniSONE] 10 mg PO DAILY #20 tablet 12/26/18 Allergies Allergy/AdvReac Type Severity Reaction Status Date / Time "GOOTENGOKEN" Allergy See Uncoded 02/02/19 08:20 Comments All systems ED: reviewed and negative except as stated. Review of Systems: As Per HPI Constitutional: Denies: fever, chills, weakness Cardiovascular: Reports: dyspnea on exertion. Denies: chest pain, palpitations Respiratory: Reports: dyspnea. Denies: cough, wheezes Gastrointestinal: Denies: abdominal pain, nausea, vomiting Musculoskeletal: Denies: back pain, neck pain Neurological: Denies: headache Endocrine: Denies: fatigue Past Medical History - Past Medical History Attestation: Yes The following information was validated with the patient. Source: patient Medical history: Reports: COPD, coronary artery disease, hypertension, myocardial infarction, other Surgical history: Reports: colectomy, coronary bypass (CABG), other Psychiatric history: Reports: no psych history - Social History Smoking Status: Current every day smoker Smokeless Tobacco Status: No Alcohol use: Reports: none Drug use: Reports: none Physical Exam - General Limitations: no limitations General appearance: alert, in distress (mild respiratory distress) - Head Head exam: atraumatic, normocephalic - Eye Eye exam: Present: normal appearance, EOMI, other (left pupil 3mm and non-reactive, right pupil 2mm and reactive to light) - Chest Chest inspection: Present: normal inspection. Absent: tenderness, rash - Respiratory Respiratory exam: Present: respiratory distress (mild), wheezes, other (diminished breath sounds in all lung bauer) - Cardiovascular Cardiovascular exam: Present: normal rhythm, tachycardia - Abdominal Exam Abdominal exam: Present: soft, Non-Tender. Absent: distention, guarding, rebound, rigidity - Extremities Exam Extremities exam: Present: pedal edema (2+ pitting edema to the knees bilaterally). Absent: tenderness - Neurological Exam Neurological exam: Present: alert, oriented X3 - Psychiatric Psychiatric exam: Present: normal affect, normal mood - Skin Skin exam: Present: warm, dry, intact Course Vital Signs Temperature 98.7 F 02/02/19 07:24 Pulse Rate 88 02/02/19 07:24 Respiratory Rate 22 02/02/19 07:24 Blood Pressure 175/98 02/02/19 07:24 O2 Sat by Pulse Oximetry 100 02/02/19 07:24 Temperature 98.7 F 02/02/19 07:24 Pulse Rate 78 02/02/19 08:24 Respiratory Rate 20 02/02/19 08:24 Blood Pressure 173/80 02/02/19 08:24 O2 Sat by Pulse Oximetry 100 02/02/19 08:24 Oxygen Delivery Oxygen Delivery Aerosol Mask Medical Decision Making - MDM Narrative Medical decision making narrative: Pt presents with acute onset MITCH. We will obtain EKG, troponin, CXR, BMP and lactic and treat the patient's symptoms with Duonebs and Solu-medrol. 815 - pts CXR was read by radiology as bilateral infiltrates vs pulmonary edema. Pt does not appear to have worsening fluid overload therefore we will treat this as a pneumonia with Rocephin and Azithromycin. Blood cultures will be colle cted and sent. Pts lactic is wnl and BMP shows a hypernatremia of 147 and elevated CO2 at 44. Troponin wnl at 0.03. 844 - patient has been accepted to the hospital by Dr. Farr for treatment of his pneumonia and COPD exacerbation. - Medical Records Medical records reviewed: Yes I reviewed the patient's medical records. - Lab Data Lab results reviewed: Yes I reviewed the patient's lab results. Result diagrams: 02/02/19 07:39 Lab Results 02/02/19 02/02/19 Range/Units 07:39 07:39 Sodium 147 H (136-145) mEq/L Potassium 4.4 (3.5-5.1) mEq/L Chloride 99 (98-107) mEq/L Carbon Dioxide 44 H* (23-29) mEq/L BUN 27 H (8-23) mg/dL Creatinine 1.07 (0.70-1.30) mg/dL Est GFR ( Amer) > 60 (> 60) Est GFR (Non-Af Amer) > 60 (> 60) BUN/Creatinine Ratio 25 (6-26) Glucose 146 H (70-105) mg/dL Calculated Osmolality 312 H (280-300) Lactic Acid 1.0 (0.5-2.2) mmol/L Calcium 9.2 (8.6-10.3) mg/dL Troponin I < 0.03 (< 0.04) ng/mL - Radiology Data Radiology results reviewed: Yes I reviewed the patient's radiology results. - EKG Data EKG #1 EKG attestation: Yes I reviewed and interpreted this EKG. EKG results narrative: EKG obtained at 729 on 02/02/2019 HR 86bpm, KS interval 131, QRS duration 96, QT 385, QTc 461 Sinus rhythm without any acute ST segment elevations. No ST segment depressions. Inverted T wave noted in lead 3. No other acute abnormalities on EKG. No significant changes when compared to previous EKG dated 12/24/2018.
[2019-02-02] MEDS ORDERED: Albuterol 2.5 MG/3 ML NEBULIZER IH ONE (07:48)
[2019-02-02] MEDS ORDERED: cefTRIAXone 1,000 MG in Water for inj. (sterile) 10 ML IVP ONE (07:55)
[2019-02-02] MEDS ORDERED: Azithromycin 500 MG in 0.9 % Sodium Chloride 250 ML IVPB ONE (07:55)
[2019-02-02 08:11] LABS: BUN/Creatinine Ratio 25 (6-26); Blood Urea Nitrogen 27 mg/dL (8-23); Calcium 9.2 mg/dL (8.6-10.3); Carbon Dioxide 44 mEq/L (23-29); Chloride 99 mEq/L (98-107); Glucose 146 mg/dL (70-105); Osmolality,Calculated 312 (280-300); Potassium 4.4 mEq/L (3.5-5.1); Sodium 147 mEq/L (136-145); Troponin I < 0.03 ng/mL (< 0.04); eGFR For African Americans > 60 (> 60); eGFR For Non-African Americans > 60 (> 60)
[2019-02-02] MEDS ORDERED: Ipratropium/Albuterol Neb 3 ML IH PRN (09:14)
[2019-02-02] MEDS ORDERED: Acetaminophen 325 MG TABLET PO PRN (09:19)
[2019-02-02] MEDS ORDERED: Ondansetron 4 MG/2 ML VIAL IVP PRN (09:19)
--- NOTE | 2019-02-02 09:23 | Internal Med History&Physical ---
Date of Encounter: 02/02/19 Time of Encounter: 09:04 Internal Medicine - H&P: HPI Chief complaint: SOB Admitted From: Emergency Dept History of present illness: Ant Macias is a 73 M w hx COPD on 3L, HFrEF 50%, CAD s/p CABG, HTN, chronic sinusitis, smoker, who p/w SOB. Pt states that for about 2-3 days, he's had increasing SOB mostly w exertion, and noticed increased cough w sputum production thicker than usual. However, he awoke this AM with significant worsening of breathing. Called EMS, who report that patient was found to be hypoxic 81% on home 3L, so he was placed on 15L nonbreather with good improvement en route to ED. Denies fevers, chills, CP, N/V/D, change in leg swelling, and rash. No sick contacts, no s/sx vURI. In the ED, vitals T 98.7, HR 88, RR 22, BP 175/98, satting 100% on 15L nonrebreather. On exam, minimal air movement. Given 3x duonebs and solumedrol with increase in wheezing, ease of work of breathing. Past Med Surg Social Fam HX - Past Medical History Medical history: COPD, coronary artery disease, hypertension, myocardial infarction, other Psychiatric history: no psych history - Past Surgical History Surgical History: colectomy, coronary bypass (CABG), other Additional surgical history: triple bypass 2011. 12 INCHES OF BOWEL REMOVED. COLOSTOMY PLACED, THEN REVERSED - Social History Smoking Status: Current every day smoker Smokeless Tobacco Status: No Alcohol use: none Drug use: none Internal Medicine - H&P: Meds Albuterol Neb [Proventil Neb] 2.5 mg IH QID 04/23/18 [History] Albuterol Sulfate [Ventolin Hfa] 2 puff IH Q4H PRN 04/23/18 [History] Metoprolol Succinate 50 mg PO QAM 04/23/18 [History] Omeprazole [PriLOSEC] 40 mg PO QAM 04/23/18 [History] Tamsulosin [Flomax] 0.4 mg PO QAM 07/14/18 [History] Lisinopril [Zestril] 10 mg PO QAM 11/12/18 [History] Aspirin [Lo-Dose Aspirin EC] 81 mg PO QAM 12/24/18 [History] Atorvastatin Calcium [Lipitor] 80 mg PO QAM 12/25/18 [History] Fluticasone Furoate [Flonase Sensimist] 1 spray NS DAILY PRN 12/25/18 [History] Azithromycin [Zithromax Tri-Morro] 500 mg PO DAILY #3 tablet 12/26/18 [Rx] Cefdinir [Omnicef] 300 mg PO BID #8 capsule 12/26/18 [Rx] predniSONE [PredniSONE] 10 mg PO DAILY #20 tablet 12/26/18 [Rx] Allergy/AdvReac Type Severity Reaction Status Date / Time "GOOTENGOKEN" Allergy See Uncoded 02/02/19 08:20 Comments All Systems PM: A 10-system review of systems was performed and is negative for pertinent findings except as documented above in the HPI. - Constitutional Vitals: Temp Pulse Resp BP Pulse Ox 98.7 F 78 20 173/80 100 02/02/19 07:24 02/02/19 08:24 02/02/19 08:24 02/02/19 08:24 02/02/19 08:24 Exam: General: NAD, good eye contact, relatively well appearing Head: Atraumatic, normocephalic. Face symmetric Eyes: EOMI, sclerae anicteric, anisocoria (L pupil unresponsive) ENT: Mucous membranes moist. Normal oral mucosa and dentition. Trachea midline. No cervical lymphadenopathy Thoracic: No visible chest wall deformities. Diminished aeration, significant expiratory wheezing on forced exhalation w prolonged exp phase Cardio: Normal S1 and S2, regular rate and rhythm, no murmurs. Abdomen: Soft, nontender, nondistended. Extremities: Warm, well perfused. DP pulses 2+ b/l. No clubbing, cyanosis. Does have pitting edema b/l legs, none in thighs Skin: Intact. No rashes, bruises, or ulcers Neuro: Awake, fully oriented. Good memory, concentration, attention. Speech fluent. CN II-XII grossly intact. Strength 5/5 in b/l UE and LE Internal Med - H&P Results - Labs CBC & Chem 7: 02/02/19 07:39 Labs: BMP 02/02/19 07:39 Sodium 147 H Potassium 4.4 Chloride 99 Carbon Dioxide 44 H* BUN 27 H Creatinine 1.07 Glucose 146 H Calcium 9.2 Cardiac Enzymes 02/02/19 Range/Units 07:39 Troponin I < 0.03 (< 0.04) ng/mL - Impressions ITS Impressions Chest X-Ray 02/02/19 07:24 IMPRESSION: Bilateral airspace opacities which could represent edema or infiltrates. Bilateral pleural effusions left worse than right. Follow up to resolution is suggested. D/ / Raya Loyola MD / Raya Loyola MD Interpreting Provider: Raya Loyola MD - Summary of Assessment and Plan Summary of Assessment and Plan: Ant Macias is a 73 M w hx COPD on 3L, HFrEF 50%, CAD s/p CABG, HTN, chronic sinusitis, who p/w SOB, wheezing, hypoxia, CXR w RLL infiltrate, suggestive of PNA causing COPD exacerbation. Acute on chronic hypoxic and hypercapneic respiratory failure: home 3L, requiring much more initially to maintain sats >88%, and BMP HCO3 elevated to 40s - check VBG - check Mg - supplemental O2, wean as able - IS, mucinex - treat causes as below - walk test prior to discharge COPD in acute exacerbation: possibly 2/2 PNA or CHF below - nebs q4h&prn - prednisone 40 daily x5d, s/p solumedrol 125 in ED - azithromycin 500 po daily x5d - home inhalers Pneumonia: appears to have RLL infiltrate, lactate wnl - UAg's - check procal and CBC - BCx x2 pending - empiric rocephin and azithro HFrEF 50%, w moderate diastolic dysfxn and mild PH: not overloaded on exam, al though BNP 400 and CXR w b/l vascular congestion - lasix 40 iv daily (home lasix 20 po) - strict I&Os, daily weight, fluid restrict Incontinence: if unable to use urinal in time, OK for condom cath Smoker: nicotine replacement offered, cessation advised CAD s/p CABG: home ASA, statin HTN: uncontrolled, home lisinopril 10, toprol 50 BPH: home flomax PPx: lovenox Tele: no Activity: up ad bhavesh FEN: cardiac 1.5L, no MIVF Lines: PIV Consults: Code: Full Dispo: obs for PNA causing COPD, anticipate 1-2 days, will be homegoing
[2019-02-02 10:12] LABS: VBG HCO3 44 mEq/L (21-27); VBG PCO2 79 mmHg (41-51); VBG PH 7.35 pH Units (7.32-7.42); VBG PO2 61 mmHg (25-50)
[2019-02-02 10:50] LABS: Basophils % 0.3 %; Immature Granulocytes % 0.3 % (0-4); Mean Corpuscular Hemoglobin 29.3 pg (28.0-33.3); Monocytes # 0.1 K/mcL (0.0-1.3)
[2019-02-02 10:52] LABS: Eosinophils % 0.3 %; Hematocrit 36.8 % (37.5-50.1); Hemoglobin 11.3 g/dL (12.9-16.9); Immature Platelets 7.2 % (1.1-6.1); Lymphocytes # 0.1 K/mcL (0.6-4.6); Lymphocytes % 3.3 %; Mean Corpuscular HGB Conc 30.7 g/dL (31.6-35.5); Mean Corpuscular Volume 95.3 fL (83.0-100.0); Red Blood Count 3.86 M/mcL (4.19-5.50); Red Cell Distribution Width 14.3 % (11.5-14.5); Segmented Neutrophils % 93.8 %
[2019-02-02 10:56] LABS: Neutrophils # 3.8 K/mcL (1.6-8.9); Platelet Count 82 K/mcL (140-400)
[2019-02-02 10:57] LABS: Platelet Estimate Decreased (Normal)
[2019-02-02] MEDS: Metoprolol XL (24 HR) Succ 50 MG TAB.ER.24H PO SCH (12:08)
[2019-02-02] MEDS: Furosemide 40 MG/4 ML VIAL IVP SCH (12:08)
[2019-02-02] MEDS: Aspirin Enteric Coated 81 MG Tablet PO SCH (12:08)
[2019-02-02] MEDS: Ipratropium/Albuterol Neb 3 ML IH SCH ×3 (13:42→20:46)
[2019-02-02] MEDS: Artificial Tears SOLN 15 ML BOTTLE BOTH EYES SCH ×2 (16:04→19:39)
[2019-02-03] MEDS: Ipratropium/Albuterol Neb 3 ML IH SCH ×7 (00:31→23:42)
[2019-02-03 01:39] LABS: Hematocrit 32.3 % (37.5-50.1); Hemoglobin 10.1 g/dL (12.9-16.9); Mean Corpuscular HGB Conc 31.3 g/dL (31.6-35.5); Mean Corpuscular Volume 92.8 fL (83.0-100.0); Mean Platelet Volume 11.9 fL (9.4-12.4); Platelet Count 103 K/mcL (140-400); Red Blood Count 3.48 M/mcL (4.19-5.50); Red Cell Distribution Width 14.4 % (11.5-14.5); White Blood Count 3.6 K/mcL (4.3-11.1)
[2019-02-03 02:00] LABS: BUN/Creatinine Ratio 27 (6-26); Blood Urea Nitrogen 31 mg/dL (8-23); Calcium 8.6 mg/dL (8.6-10.3); Carbon Dioxide 42 mEq/L (23-29); Chloride 98 mEq/L (98-107); Glucose 120 mg/dL (70-105); Magnesium 1.9 mg/dL (1.6-2.6); Osmolality,Calculated 306 (280-300); Potassium 4.8 mEq/L (3.5-5.1); Sodium 144 mEq/L (136-145); eGFR For African Americans > 60 (> 60); eGFR For Non-African Americans > 60 (> 60)
[2019-02-03] MEDS: *HR* Enoxaparin 40 MG/0.4 ML SYRINGE SQ SCH (05:54)
[2019-02-03] MEDS: Furosemide 40 MG/4 ML VIAL IVP SCH (06:41)
[2019-02-03] MEDS: predniSONE 20 MG TABLET PO SCH (08:14)
[2019-02-03] MEDS: Metoprolol XL (24 HR) Succ 50 MG TAB.ER.24H PO SCH (08:14)
[2019-02-03] MEDS: Aspirin Enteric Coated 81 MG Tablet PO SCH (08:14)
[2019-02-03] MEDS ORDERED: cefTRIAXone 1,000 MG in Water for inj. (sterile) 10 ML IVP SCH (09:00)
[2019-02-03] MEDS ORDERED: Azithromycin 250 MG TABLET PO SCH (09:00)
[2019-02-03] MEDS: Artificial Tears SOLN 15 ML BOTTLE BOTH EYES SCH ×2 (09:25→20:00)
--- NOTE | 2019-02-03 10:37 | Electrocardiograph Report ---
[address] [address] Test Date: 2019-02-02 Pat Name: Ant Macias Department: [id number] Room: 2NE27 Gender: M Hourly Manager: : [id number] Requested By: Cathi Medina Order Number: [id number] Reading MD: Vivienne Del Toro Measurements Intervals [place] Rate: 86 P: 1 UT: 131 QRS: 70 QRSD: 96 T: -35 QT: 385 QTc: 461 Interpretive Statements Sinus rhythm with sinus arrhythmia Probable left atrial enlargement Left ventricular hypertrophy Nonspecific T abnormalities, inferior leads Electronically Signed On 02-03-2019 10:36:06 EDT by Vivienne Del Toro
--- NOTE | 2019-02-03 11:47 | Internal Med Progress Note ---
Hospitalist Progress Note - Encounter Date of Encounter: 02/03/19 Time of Encounter: 08:45 - Subjective Interval History: H&P reviewed. 73-year-old male with history of COPD on 3 L of oxygen, heart failure with preserved EF, CAD status post CABG, CKD, who was admitted due to acute on chronic hypoxic respiratory failure secondary to pneumonia +/- fluid overload. Also complicated by COPD exacerbation. He was requiring 15 L of oxygen at one point but quickly weaned down to his baseline O2 status this morning. Reports improvement in his shortness of breath but not close to his baseline. No chest pain. - Exam Vitals: Temp Pulse Resp BP Pulse Ox 97.8 F 76 16 143/74 95 02/03/19 07:04 02/03/19 11:10 02/03/19 11:22 02/03/19 11:10 02/03/19 11:22 Exam: General: Alert and oriented, mild distress. Cardiovascular:Normal S1 & S2, No JVD. Pulse regular. Lungs: scattered wheezes bilaterally Abdomen:Soft, non-tender, no rigidity. Extremities:No deformity or swelling Neurological:Normal cognition and motor skills. Non-focal - Assessment and Plan (1) Acute and chronic respiratory failure with hypoxia Current Visit: Yes Status: Acute Assessment and Plan: Also with hypercarbia Likely due to a combination of pneumonia and mild fluid overload complicated by COPD exacerbation started on /zithro, steroid, and bronchodilators. IV lasix 40mg was also g iven will continue 20mg of lasix today, switch abx to levaquin given his recent admission in late December continue steroids wean O2 as tolerated BiPaP qualification study if he doesnt have one at home (2) Pneumonia Current Visit: Yes Status: Acute Assessment and Plan: abx as above (3) Acute on chronic diastolic (congestive) heart failure Current Visit: Yes Status: Acute Assessment and Plan: lasix as above for respiratory failure (4) Acute exacerbation of chronic obstructive airways disease Current Visit: Yes Status: Acute Assessment and Plan: abx, steroids, and bronchodilators as aove continues to smoke 7-8 sticks a day, discussed extensively on the importance of smoking cessation nicotine replacement therapy (5) Chronic kidney disease, stage III (moderate) Current Visit: No Status: Chronic Assessment and Plan: Cr stable, monitor while on diuretics (6) DVT prophylaxis Current Visit: No Status: Acute Assessment and Plan: SQ lovenox - Time Spent with Patient Total time spent is greater than 50% in coordination of care (as documented) at patient's floor/unit and/or counseling patient: 25 - 35 minutes Internal Medicine: Result - Labs CBC & Chem 7: 02/03/19 01:21 02/03/19 01:21 Labs: Short CBC 02/03/19 Range/Units 01:21 WBC 3.6 L (4.3-11.1) K/mcL Hgb 10.1 L (12.9-16.9) g/dL Hct 32.3 L (37.5-50.1) % Plt Count 103 L (140-400) K/mcL BMP 02/03/19 01:21 Sodium 144 Potassium 4.8 Chloride 98 Carbon Dioxide 42 H* BUN 31 H Creatinine 1.15 Glucose 120 H Calcium 8.6 Consult Discharge Plan - Plan Referrals: Dario Guerrero Jr, MD [Primary Care Provider] - (2) Pneumonia Qualifiers: Pneumonia type: due to unspecified organism Laterality: bilateral Lung location: lower lobe of lung Qualified Code(s): J18.1 - Lobar pneumonia, unspecified organism
[2019-02-03] MEDS ORDERED: Furosemide 20 MG/2 ML VIAL IVP ONE (11:49)
[2019-02-04] MEDS: Ipratropium/Albuterol Neb 3 ML IH SCH ×6 (03:52→23:29)
[2019-02-04 05:28] LABS: ABG Base Excess 21 mEq/L (-2 to 3); ABG HCO3 48 mEq/L (21-27); ABG Oxygen Saturation 93 % (95-98); ABG PCO2 73 mmHg (35-45); ABG PH 7.43 pH Units (7.32-7.45); ABG PO2 69 mmHg (85-104); ABG TCO2 > 50 mEq/L (20-26)
[2019-02-04 05:29] LABS: BUN/Creatinine Ratio 28 (6-26); Blood Urea Nitrogen 37 mg/dL (8-23); Calcium 8.6 mg/dL (8.6-10.3); Carbon Dioxide 41 mEq/L (23-29); Chloride 96 mEq/L (98-107); Glucose 106 mg/dL (70-105); Osmolality,Calculated 307 (280-300); Potassium 4.2 mEq/L (3.5-5.1); Sodium 144 mEq/L (136-145); eGFR For African Americans > 60 (> 60); eGFR For Non-African Americans 54 (> 60)
[2019-02-04] MEDS: *HR* Enoxaparin 40 MG/0.4 ML SYRINGE SQ SCH (05:39)
[2019-02-04] MEDS: Lisinopril 20 MG TABLET PO SCH (08:02)
[2019-02-04] MEDS: predniSONE 20 MG TABLET PO SCH (08:02)
[2019-02-04] MEDS: Metoprolol XL (24 HR) Succ 50 MG TAB.ER.24H PO SCH (08:02)
[2019-02-04] MEDS: Aspirin Enteric Coated 81 MG Tablet PO SCH (08:03)
[2019-02-04] MEDS: levoFLOXacin 750 MG TABLET PO SCH (08:03)
[2019-02-04] MEDS: Artificial Tears SOLN 15 ML BOTTLE BOTH EYES SCH ×2 (08:07→20:08)
[2019-02-04] MEDS: Nicotine 14 MG PATCH.TD24 TD SCH (08:08)
--- NOTE | 2019-02-04 09:43 | Internal Med Progress Note ---
Hospitalist Progress Note - Encounter Date of Encounter: 02/04/19 Time of Encounter: 08:30 - Subjective Interval History: He was overall feeling better throughout the day yesterday but had an episode of coughing spell this morning after which he became a bit short of breath. Otherwise, denies any chest pain, hemoptysis, or fever/chills. - Exam Vitals: Temp Pulse Resp BP Pulse Ox 98.1 F 74 18 172/88 97 02/04/19 06:35 02/04/19 06:35 02/04/19 07:43 02/04/19 07:40 02/04/19 07:43 Exam: General: Alert and oriented, mild distress. Cardiovascular:Normal S1 & S2, No JVD. Pulse regular. Lungs: scattered wheezes bilaterally Abdomen:Soft, non-tender, no rigidity. Extremities:No deformity or swelling Neurological:Normal cognition and motor skills. Non-focal - Assessment and Plan (1) Acute and chronic respiratory failure with hypoxia Current Visit: Yes Status: Acute Assessment and Plan: Also with hypercarbia Likely due to a combination of pneumonia and mild fluid overload complicated by COPD exacerbation on levaquin, steroid, and bronchodilators. REceived 2 doses of IV lasix so far continue abx, steroid but hold off on diuretic for today in view of mildly elevated Cr wean O2 as tolerated BiPaP qualification study done, will follow up on the outcome (2) Pneumonia Current Visit: Yes Status: Acute Assessment and Plan: abx as above (3) Acute on chronic diastolic (congestive) heart failure Current Visit: Yes Status: Acute Assessment and Plan: lasix on hold for today will optimize pt's BP (4) HTN (hypertension) Current Visit: No Status: Chronic Assessment and Plan: Increase lisinopril to 20 mg and add Norvasc 5mg continue bb (5) Acute exacerbation of chronic obstructive airways disease Current Visit: Yes Status: Acute Assessment and Plan: abx, steroids, and bronchodilators as above continues to smoke 7-8 sticks a day, discussed extensively on the importance of smoking cessation nicotine replacement therapy (6) Chronic kidney disease, stage III (moderate) Current Visit: No Status: Chronic Assessment and Plan: Cr relatively stable, will hold diuretics today (7) DVT prophylaxis Current Visit: No Status: Acute Assessment and Plan: Lovenox - Time Spent with Patient Total time spent is greater than 50% in coordination of care (as documented) at patient's floor/unit and/or counseling patient: 25 - 35 minutes Plan of Care Discussed with: patient Internal Medicine: Result - Labs CBC & Chem 7: 02/03/19 01:21 02/04/19 04:29 Labs: BMP 02/04/19 04:29 Sodium 144 Potassium 4.2 Chloride 96 L Carbon Dioxide 41 H* BUN 37 H Creatinine 1.30 Glucose 106 H Calcium 8.6 - ABG Interpretation ABG results: ABG ABG pH 7.43 pH Units (7.32-7.45) 02/04/19 05:22 ABG pCO2 73 mmHg (35-45) H* 02/04/19 05:22 ABG pO2 69 mmHg (85-104) L 02/04/19 05:22 ABG O2 Saturation 93 % (95-98) L 02/04/19 05:22 - Impressions Impressions Chest X-Ray 02/02/19 07:24 IMPRESSION: Bilateral airspace opacities which could represent edema or infiltrates. Bilateral pleural effusions, left worse than right. Follow up to resolution is suggested. D/ / 02/02/2019 09:39:01 Raya Loyola MD / formerly [facility] Interpreting Provider: Raya Loyola MD Consult Discharge Plan - Plan Referrals: Dario Guerrero Jr, MD [Primary Care Provider] - (2) Pneumonia Qualifiers: Pneumonia type: due to unspecified organism Laterality: bilateral Lung location: lower lobe of lung Qualified Code(s): J18.1 - Lobar pneumonia, unspecified organism (4) HTN (hypertension) Qualifiers: Hypertension type: essential hypertension Qualified Code(s): I10 - Essential (primary) hypertension
[2019-02-04] MEDS: amLODIPine 5 MG TABLET PO SCH (11:02)
[2019-02-04 12:05] LABS: VBG HCO3 44 mEq/L (21-27); VBG PH 7.39 pH Units (7.32-7.42); VBG PO2 104 mmHg (25-50)
[2019-02-04 12:14] LABS: VBG PCO2 74 mmHg (41-51)
[2019-02-05 01:55] LABS: Basophils % 0.2 %; Hematocrit 31.9 % (37.5-50.1); Immature Granulocytes % 0.2 % (0-4); Lymphocytes # 0.4 K/mcL (0.6-4.6); Mean Corpuscular HGB Conc 31.3 g/dL (31.6-35.5); Mean Corpuscular Hemoglobin 29.2 pg (28.0-33.3); Mean Corpuscular Volume 93.3 fL (83.0-100.0); Mean Platelet Volume 11.7 fL (9.4-12.4); Monocytes # 0.3 K/mcL (0.0-1.3); Monocytes % 7.3 %; Neutrophils # 3.4 K/mcL (1.6-8.9); Platelet Count 108 K/mcL (140-400); Red Blood Count 3.42 M/mcL (4.19-5.50); Red Cell Distribution Width 14.1 % (11.5-14.5); Segmented Neutrophils % 83.3 %; White Blood Count 4.1 K/mcL (4.3-11.1)
[2019-02-05 02:12] LABS: BUN/Creatinine Ratio 30 (6-26); Blood Urea Nitrogen 34 mg/dL (8-23); Calcium 8.2 mg/dL (8.6-10.3); Carbon Dioxide 39 mEq/L (23-29); Chloride 97 mEq/L (98-107); Glucose 118 mg/dL (70-105); Magnesium 2.1 mg/dL (1.6-2.6); Osmolality,Calculated 301 (280-300); Potassium 4.4 mEq/L (3.5-5.1); Sodium 141 mEq/L (136-145); eGFR For African Americans > 60 (> 60); eGFR For Non-African Americans > 60 (> 60)
[2019-02-05] MEDS: Ipratropium/Albuterol Neb 3 ML IH SCH ×3 (03:51→11:19)
[2019-02-05] MEDS: *HR* Enoxaparin 40 MG/0.4 ML SYRINGE SQ SCH (05:00)
[2019-02-05 07:00] VITALS: BP 151/92
--- NOTE | 2019-02-05 08:59 | Discharge Summary ---
- NOTES TO OUTPATIENT PROVIDER Notes to Outpatient Provider: Follow-up with pulmonology as outpatient Orders not resulted at time of discharge: Pending orders 02/02/19 07:35 Culture,Blood [BC] Stat Date of Encounter: 02/05/19 Time of Encounter: 07:15 - Discharge Diagnosis (1) Acute and chronic respiratory failure with hypoxia Priority: Primary Status: Acute (2) Pneumonia Priority: Secondary Status: Acute Qualifiers: Pneumonia type: due to unspecified organism Laterality: bilateral Lung location: lower lobe of lung Qualified Code(s): J18.1 - Lobar pneumonia, unspecified organism (3) Acute on chronic diastolic (congestive) heart failure Priority: Secondary Status: Acute (4) HTN (hypertension) Priority: Secondary Status: Chronic Qualifiers: Hypertension type: essential hypertension Qualified Code(s): I10 - Essential (primary) hypertension (5) Acute exacerbation of chronic obstructive airways disease Priority: Secondary Status: Acute (6) Chronic kidney disease, stage III (moderate) Priority: Secondary Status: Chronic (7) DVT prophylaxis Priority: Secondary Status: Acute (8) Severe protein-calorie malnutrition Priority: Secondary Status: Acute Hospital course: Mr. Macias is a 73 year old male with history of COPD on 3 L of oxygen, heart failure with preserved EF, CAD status post CABG, CKD, who was admitted due to acute on chronic hypoxic respiratory failure secondary to fluid overload +/- PNA with COPD exacerbation. He was requiring 15 L of oxygen at one point but q uickly weaned down to his baseline O2 status after the initiation of diuresis, steroid, abx, and bronchodilators. He was also noted to be in chronic hypercapnic respiratory failure and underwent BiPAP qualification study prior to discharge. He will be discharged on adjusted regimen for HTN, short course of abx/steroid, and duoneb. He was advised to follow with pulmonology as outpatient Discharge discussed with: patient, family, nurse - Time Spent with Patient Total time spent providing and/or coordinating discharge services: 33 mins - Discharge Medications Prescriptions: New Ipratropium/Albuterol Neb [Duoneb] 3 ml IH [id number] PRN #120 inhsol PRN Reason: Shortness Of Breath/Wheezing levoFLOXacin [Levaquin] 750 mg PO DAILY #3 tablet Nicotine Patch [Nicoderm] 14 mg TD DAILY #21 patch.[id number] amLODIPine [Norvasc] 5 mg PO DAILY #30 tablet predniSONE [PredniSONE] 40 mg PO DAILY 2 Days #4 tablet Lisinopril [Zestril] 20 mg PO QAM #30 tablet Continued Albuterol Sulfate [Ventolin Hfa] 2 puff IH Q4H PRN PRN Reason: Shortness Of Breath Albuterol Neb [Proventil Neb] 2.5 mg IH QID Metoprolol Succinate 50 mg PO QAM Omeprazole [PriLOSEC] 40 mg PO QAM Tamsulosin [Flomax] 0.4 mg PO QAM Aspirin [Lo-Dose Aspirin EC] 81 mg PO QAM Atorvastatin Calcium [Lipitor] 80 mg PO QAM Fluticasone Furoate [Flonase Sensimist] 1 spray NS DAILY PRN PRN Reason: Allergy Symptoms Furosemide [Lasix] 20 mg PO DAILY Discontinued Lisinopril [Zestril] 10 mg PO QAM Home Medications: Albuterol Neb [Proventil Neb] 2.5 mg IH QID 04/23/18 [History] Albuterol Sulfate [Ventolin Hfa] 2 puff IH Q4H PRN 04/23/18 [History] Metoprolol Succinate 50 mg PO QAM 04/23/18 [History] Omeprazole [PriLOSEC] 40 mg PO QAM 04/23/18 [History] Tamsulosin [Flomax] 0.4 mg PO QAM 07/14/18 [History] Aspirin [Lo-Dose Aspirin EC] 81 mg PO QAM 12/24/18 [History] Atorvastatin Calcium [Lipitor] 80 mg PO QAM 12/25/18 [History] Fluticasone Furoate [Flonase Sensimist] 1 spray NS DAILY PRN 12/25/18 [History] Furosemide [Lasix] 20 mg PO DAILY 02/03/19 [History] Ipratropium/Albuterol Neb [Duoneb] 3 ml IH [id number] PRN #120 inhsol 02/05/19 [Rx] Lisinopril [Zestril] 20 mg PO QAM #30 tablet 02/05/19 [Rx] Nicotine Patch [Nicoderm] 14 mg TD DAILY #21 patch.td24 02/05/19 [Rx] amLODIPine [Norvasc] 5 mg PO DAILY #30 tablet 02/05/19 [Rx] levoFLOXacin [Levaquin] 750 mg PO DAILY #3 tablet 02/05/19 [Rx] predniSONE [PredniSONE] 40 mg PO DAILY 2 Days #4 tablet 02/05/19 [Rx] Allergies/Adverse Reactions: Allergy/AdvReac Type Severity Reaction Status Date / Time immune globulin,gamma (IgG) Allergy See Verified 02/03/19 10:23 human Comments Date of admission: 02/03/19 11:44 Primary care physician: Dario Guerrero Jr, MD Consults: 02/02/19 10:41 Consult to Nutrition [CONS] Routine Comment: Consulting Provider: NUTRITION Reason for Dietary Consult: MST Score - Constitutional Vitals: Temp Pulse Resp BP Pulse Ox 97.4 F L 70 17 151/92 98 02/05/19 03:44 02/05/19 06:58 02/05/19 07:23 02/05/19 06:58 02/05/19 07:23 Exam: General: Alert and oriented, not in distress Cardiovascular:Normal S1 & S2, No JVD. Pulse regular. Lungs: Clear to auscultation Abdomen:Soft, non-tender, no rigidity. Extremities:No deformity or swelling Neurological:Normal cognition and motor skills. Non-focal - Patient Status Disposition: Home, Self-Care Condition: Fair Functional capacity at discharge: independent ambulation Overall status at discharge: patient is progressing back to baseline - Discharge Instructions Instructions: Acute Respiratory Distress Syndrome (DC), Chronic Obstructive Pulmonary Disease (DC), Heart Failure (DC), Chronic Hypertension (DC) Follow Up With: Dario Guerrero Jr, MD [Primary Care Provider] - Opal Torres MD [Partnered Physician] - Forms: ED Satisfaction Letter - Diet and Activity Activity: resume usual activities as tolerated Diet: low salt diet
[2019-02-05] MEDS: Aspirin Enteric Coated 81 MG Tablet PO SCH (09:33)
[2019-02-05] MEDS: predniSONE 20 MG TABLET PO SCH (09:34)
[2019-02-05] MEDS: levoFLOXacin 750 MG TABLET PO SCH (09:34)
[2019-02-05] MEDS: Lisinopril 20 MG TABLET PO SCH (09:34)
[2019-02-05] MEDS: Metoprolol XL (24 HR) Succ 50 MG TAB.ER.24H PO SCH (09:34)
[2019-02-05] MEDS: amLODIPine 5 MG TABLET PO SCH (09:34)
[2019-02-05] MEDS: Nicotine 14 MG PATCH.TD24 TD SCH (09:35)
[2019-02-05] MEDS: Artificial Tears SOLN 15 ML BOTTLE BOTH EYES SCH (09:36)
== END 2019-02-05 11:51 | disposition home or self-care (01) | DRG 291 ==
LOC: EMEROOARM 07:17 → 2NENU 07:17 → SUATTDRO 08:49 → 2NENU 09:59
PROVIDERS: ADMIT Internal Medicine; ATTEND Internal Medicine

== ENCOUNTER 2020-04-14 08:55 | Observation (INO) ==
[2020-04-14] MEDS ORDERED: methylPREDNISolone 125 MG/2 ML VIAL IVP ONE (09:03)
[2020-04-14] MEDS ORDERED: Ipratropium/Albuterol Neb 3 ML IH ONE (09:03)
[2020-04-14 09:28] LABS: Basophils % 0.9 %; Eosinophils # 0.2 K/mcL (0.0-0.6); Eosinophils % 5.6 %; Hematocrit 36.1 % (37.5-50.1); Hemoglobin 11.3 g/dL (12.9-16.9); Immature Platelets 4.8 % (1.1-6.1); Lymphocytes # 0.6 K/mcL (0.6-4.6); Lymphocytes % 16.3 %; Mean Corpuscular HGB Conc 31.3 g/dL (31.6-35.5); Mean Corpuscular Hemoglobin 30.1 pg (28.0-33.3); Mean Platelet Volume 10.7 fL (9.4-12.4); Monocytes # 0.2 K/mcL (0.0-1.3); Monocytes % 7.1 %; Neutrophils # 2.4 K/mcL (1.6-8.9); Platelet Count 110 K/mcL (140-400); Red Blood Count 3.76 M/mcL (4.19-5.50); Red Cell Distribution Width 13.1 % (11.5-14.5); Segmented Neutrophils % 70.1 %; White Blood Count 3.4 K/mcL (4.3-11.1)
[2020-04-14 09:30] LABS: Prothrombin Time 11.3 Seconds (9.4-12.1)
[2020-04-14 09:33] LABS: Activated Partial Thrombo Time 38.8 Seconds (26.0-36.0)
[2020-04-14 09:47] LABS: Alanine Aminotransferase 13 Units/L (7-52); Albumin 3.3 g/dL (3.5-5.7); Albumin/Globulin Ratio 1.4 (1.1-2.2); Alkaline Phosphatase 107 Units/L (34-104); Aspartate Amino Transferase 16 Units/L (13-39); BUN/Creatinine Ratio 19 (6-26); Bilirubin,Direct 0.1 mg/dL (0.0-0.2); Bilirubin,Indirect 0.3 mg/dL (0.0-1.0); Bilirubin,Total 0.4 mg/dL (0.3-1.0); Blood Urea Nitrogen 28 mg/dL (8-23); Calcium 8.7 mg/dL (8.6-10.3); Carbon Dioxide 39 mEq/L (23-29); Chloride 101 mEq/L (98-107); Globulin 2.4 g/dL (2.4-3.5); Glucose 116 mg/dL (70-105); Osmolality,Calculated 304 (280-300); Potassium 4.8 mEq/L (3.5-5.1); Sodium 144 mEq/L (136-145); Total Protein 5.7 g/dL (6.4-8.9); Troponin I < 0.03 ng/mL (< 0.04); eGFR For African Americans 56 (> 60); eGFR For Non-African Americans 46 (> 60)
[2020-04-14 10:41] LABS: Adenovirus Not Detected (Not Detect); Bordetella Pertussis Not Detected (Not Detect); Chlamydophila pneumoniae Not Detected (Not Detect); Coronavirus 229E Not Detected (Not Detect); Coronavirus HKU1 Not Detected (Not Detect); Coronavirus NL63 Not Detected (Not Detect); Coronavirus OC43 Not Detected (Not Detect); Human Metapneumovirus Not Detected (Not Detect); Human Rhinovirus/Enterovirus Not Detected (Not Detect); Influenza A Subtype 2009 H1 Not Detected (Not Detect); Influenza B Not Detected (Not Detect); Mycoplasma pneumoniae Not Detected (Not Detect); Parainfluenza Virus 1 Not Detected (Not Detect); Parainfluenza Virus 2 Not Detected (Not Detect); Parainfluenza Virus 3 Not Detected (Not Detect); Parainfluenza Virus 4 Not Detected (Not Detect); Respiratory Syncytial Virus Not Detected (Not Detect); SARS-CoV-2 Not Detected (Not Detect)
[2020-04-14] MEDS ORDERED: Azithromycin 500 MG in 0.9 % Sodium Chloride 250 ML IVPB ONE (10:43)
[2020-04-14] MEDS ORDERED: Mag Hydrox/Al Hydrox/Simeth 30 ML UDC PO PRN (10:59)
[2020-04-14] MEDS ORDERED: Ondansetron ODT 4 MG TAB.RAPDIS SL PRN (10:59)
[2020-04-14] MEDS ORDERED: Naloxone 0.4 MG/ML INJ IVP PRN (10:59)
[2020-04-14] MEDS ORDERED: Furosemide 20 MG/2 ML VIAL IVP ONE (11:38)
[2020-04-14] MEDS ORDERED: Albuterol 2.5 MG/3 ML NEBULIZER IH PRN (12:14)
[2020-04-14 13:37] LABS: Bilirubin,Urine Negative (Negative); Blood,Urine Moderate (Negative); Clarity,Urine Clear (Clear); Color,Urine Yellow (Yellow); Glucose,Urine (UA) Normal (Normal); Granular Casts,Urine Few per lpf (None Seen); Hyaline Casts,Urine Many per lpf (None Seen); Ketones,Urine Trace mg/dL (Negative); Leukocyte Esterase,Urine Negative (Negative); Mucus,Urine Few per lpf (None-Few); Nitrite,Urine Negative (Negative); PH,Urine 6.5 pH Units (5.0-8.0); Protein,Urine >=600 mg/dL (Neg-Trace); Renal Epithelial Cells,Urine Moderate per hpf (None-Few); Specific Gravity,Urine > 1.030 (1.010-1.025); Squamous Epithelial Cell,Urine Few per hpf (None-Few); Transitional Epi Cells,Urine Few per hpf (None-Few); Urobilinogen,Urine Normal (Normal)
[2020-04-14] MEDS: Ipratropium/Albuterol Neb 3 ML IH SCH ×3 (16:12→23:51)
[2020-04-14] MEDS: *HR* Heparin 5,000 UNIT/ML VIAL SQ SCH (16:22)
[2020-04-14] MEDS: Furosemide 40 MG/4 ML VIAL IVP SCH (21:33)
[2020-04-15] MEDS ORDERED: hydrALAZINE 10 MG TABLET PO PRN (01:55)
[2020-04-15] MEDS: Ipratropium/Albuterol Neb 3 ML IH SCH ×4 (03:27→15:50)
[2020-04-15] MEDS: *HR* Heparin 5,000 UNIT/ML VIAL SQ SCH (05:29)
[2020-04-15] MEDS: Furosemide 40 MG/4 ML VIAL IVP SCH (08:16)
[2020-04-15 08:25] LABS: Basophils % 0.3 %; Eosinophils % 0.3 %; Hematocrit 31.5 % (37.5-50.1); Hemoglobin 10.1 g/dL (12.9-16.9); Immature Granulocytes % 0.5 % (0-4); Lymphocytes # 0.4 K/mcL (0.6-4.6); Lymphocytes % 9.8 %; Mean Corpuscular HGB Conc 32.1 g/dL (31.6-35.5); Mean Corpuscular Volume 93.5 fL (83.0-100.0); Mean Platelet Volume 11.3 fL (9.4-12.4); Monocytes # 0.2 K/mcL (0.0-1.3); Monocytes % 5.8 %; Neutrophils # 3.3 K/mcL (1.6-8.9); Platelet Count 114 K/mcL (140-400); Red Blood Count 3.37 M/mcL (4.19-5.50); Segmented Neutrophils % 83.3 %
[2020-04-15 08:39] LABS: Albumin/Globulin Ratio 1.4 (1.1-2.2); Bilirubin,Total 0.3 mg/dL (0.3-1.0); Calcium 8.3 mg/dL (8.6-10.3); Globulin 2.2 g/dL (2.4-3.5); Potassium 4.3 mEq/L (3.5-5.1); Total Protein 5.2 g/dL (6.4-8.9)
[2020-04-15] MEDS ORDERED: Azithromycin 500 MG in 0.9 % Sodium Chloride 250 ML IVPB SCH (09:00)
[2020-04-15] MEDS ORDERED: predniSONE 20 MG TABLET PO SCH (09:00)
[2020-04-15] MEDS ORDERED: Fluticasone Propionate Nasal 50 MCG/SPRAY BOTTLE NS PRN (13:51)
[2020-04-15] MEDS ORDERED: Metoprolol XL (24 HR) Succ 50 MG TAB.ER.24H PO SCH (13:53)
[2020-04-15] MEDS ORDERED: hydrALAZINE 25 MG TABLET PO SCH (14:00)
[2020-04-15] MEDS ORDERED: Aspirin Enteric Coated 81 MG Tablet PO SCH (14:00)
[2020-04-15] MEDS ORDERED: Folic Acid 1 MG TABLET PO SCH (14:00)
[2020-04-15 15:33] VITALS: BP 178/85
[2020-04-16] MEDS ORDERED: Cyanocobalamin (B-12) 1,000 MCG TABLET PO SCH (09:00)
== END 2020-04-15 17:24 | disposition home or self-care (01) ==
LOC: EMEROOARM 08:55 → 2ANU 08:55 → SUATTDRO 11:21 → 2ANU 12:28
PROVIDERS: ADMIT Family Medicine; ATTEND Internal Medicine

== ENCOUNTER 2020-07-02 04:02 | Inpatient (IN) ==
[2020-07-02] MEDS ORDERED: Isovue-370 500 ML BOTTLE IVP ONE (04:06)
[2020-07-02] MEDS ORDERED: methylPREDNISolone 125 MG/2 ML VIAL IVP ONE (04:15)
[2020-07-02] MEDS ORDERED: Ipratropium/Albuterol Neb 3 ML IH ONE (04:15)
[2020-07-02 04:57] LABS: Basophils % 0.3 %; Eosinophils # 0.1 K/mcL (0.0-0.6); Eosinophils % 1.6 %; Hemoglobin 9.9 g/dL (12.9-16.9); Lymphocytes # 0.3 K/mcL (0.6-4.6); Lymphocytes % 8.4 %; Mean Corpuscular Hemoglobin 29.1 pg (28.0-33.3); Mean Corpuscular Volume 97.1 fL (83.0-100.0); Mean Platelet Volume 11.6 fL (9.4-12.4); Monocytes # 0.2 K/mcL (0.0-1.3); Monocytes % 4.3 %; Neutrophils # 3.2 K/mcL (1.6-8.9); Platelet Count 101 K/mcL (140-400); Red Cell Distribution Width 13.8 % (11.5-14.5); Segmented Neutrophils % 85.4 %; White Blood Count 3.7 K/mcL (4.3-11.1)
[2020-07-02 05:01] LABS: Calcium 8.5 mg/dL (8.6-10.3); Potassium 4.3 mEq/L (3.5-5.1)
[2020-07-02 05:05] LABS: Troponin I 0.04 ng/mL (< 0.04)
[2020-07-02 05:30] LABS: Adenovirus Not Detected (Not Detect); Bordetella Pertussis Not Detected (Not Detect); Chlamydophila pneumoniae Not Detected (Not Detect); Coronavirus 229E Not Detected (Not Detect); Coronavirus HKU1 Not Detected (Not Detect); Coronavirus NL63 Not Detected (Not Detect); Coronavirus OC43 Not Detected (Not Detect); Human Metapneumovirus Not Detected (Not Detect); Human Rhinovirus/Enterovirus Not Detected (Not Detect); Influenza A Subtype 2009 H1 Not Detected (Not Detect); Influenza B Not Detected (Not Detect); Mycoplasma pneumoniae Not Detected (Not Detect); Parainfluenza Virus 1 Not Detected (Not Detect); Parainfluenza Virus 2 Not Detected (Not Detect); Parainfluenza Virus 3 Not Detected (Not Detect); Parainfluenza Virus 4 Not Detected (Not Detect); Respiratory Syncytial Virus Not Detected (Not Detect); SARS-CoV-2 Not Detected (Not Detect)
[2020-07-02] MEDS ORDERED: Furosemide 40 MG in 0.9 % Sodium Chloride 50 ML IVPB ONE ×2 (06:56→09:00)
[2020-07-02] MEDS ORDERED: Naloxone 0.4 MG/ML INJ IVP PRN (07:17)
[2020-07-02] MEDS ORDERED: Perflutren Lipid Microsphere 1.3 ML in 0.9 % Sodium Chloride 8.7 ML IVP PRN (07:20)
[2020-07-02 10:33] LABS: Prothrombin Time 11.1 Seconds (9.4-12.1)
[2020-07-02] MEDS: Budesonide/Formoterol 160/4.5 1 PUFF INH IH SCH ×2 (10:45→20:19)
[2020-07-02] MEDS: Ipratropium/Albuterol Neb 3 ML IH SCH ×3 (10:46→20:12)
[2020-07-02] MEDS: Furosemide 40 MG/4 ML VIAL IVP SCH (16:57)
[2020-07-02] MEDS: hydrALAZINE 25 MG TABLET PO SCH (16:58)
[2020-07-02] MEDS: *HR* Heparin 5,000 UNIT/ML VIAL SQ SCH (16:58)
[2020-07-02 17:19] LABS: RBC,Pleural Fluid < 2000 RBC/mcL
[2020-07-02 17:26] LABS: Lactate Dehydrogenase 141 Units/L (140-271); Total Protein 5.1 g/dL (6.4-8.9)
[2020-07-02 17:27] LABS: Troponin I 0.03 ng/mL (< 0.04)
[2020-07-02 17:41] LABS: Glucose,Pleural Fluid 163 mg/dL (No Ref Range); LDH,Pleural Fluid 54 Units/L (No Ref Range); Total Protein,Pleural Fluid < 2.0 g/dL
[2020-07-02 18:12] LABS: Basophils,Pleural Fluid 0 %; Eosinophils,Pleural Fluid 0 %
[2020-07-02 18:13] LABS: Appearance of Pleural Fl Clear (Clear)
[2020-07-02 21:07] LABS: Bilirubin,Urine Negative (Negative); Blood,Urine Negative (Negative); Clarity,Urine Clear (Clear); Color,Urine Light-Yellow (Yellow); Glucose,Urine (UA) Normal (Normal); Hyaline Casts,Urine Few per lpf (None Seen); Ketones,Urine Negative (Negative); Leukocyte Esterase,Urine Negative (Negative); Nitrite,Urine Negative (Negative); Protein,Urine 100 mg/dL (Neg-Trace); RBC,Urine 0-3 per hpf (0-3); Squamous Epithelial Cell,Urine Few per hpf (None-Few); Urobilinogen,Urine Normal (Normal); WBC,Urine 0-3 per hpf (0-3)
[2020-07-03] MEDS: hydrALAZINE 25 MG TABLET PO SCH ×3 (00:02→16:48)
[2020-07-03 02:12] LABS: Mean Platelet Volume 11.4 fL (9.4-12.4)
[2020-07-03 02:14] LABS: Hemoglobin 7.9 g/dL (12.9-16.9); Mean Corpuscular HGB Conc 30.4 g/dL (31.6-35.5); Mean Corpuscular Hemoglobin 28.5 pg (28.0-33.3); Mean Corpuscular Volume 93.9 fL (83.0-100.0); Red Blood Count 2.77 M/mcL (4.19-5.50); Red Cell Distribution Width 13.6 % (11.5-14.5); White Blood Count 3.8 K/mcL (4.3-11.1)
[2020-07-03 02:28] LABS: Calcium 7.9 mg/dL (8.6-10.3); Phosphorous 2.5 mg/dL (2.7-4.5); Potassium 4.3 mEq/L (3.5-5.1)
[2020-07-03] MEDS: Ipratropium/Albuterol Neb 3 ML IH SCH ×4 (04:05→22:09)
[2020-07-03] MEDS: *HR* Heparin 5,000 UNIT/ML VIAL SQ SCH ×2 (06:23→16:48)
[2020-07-03 07:26] LABS: Hematocrit 26.5 % (37.5-50.1); Hemoglobin 8.2 g/dL (12.9-16.9)
[2020-07-03] MEDS ORDERED: Furosemide 40 MG/4 ML VIAL IVP SCH (09:00)
[2020-07-03] MEDS: Metoprolol XL (24 HR) Succ 50 MG TAB.ER.24H PO SCH (09:40)
[2020-07-03] MEDS: Furosemide 40 MG/4 ML VIAL IVP SCH ×2 (09:40→16:48)
[2020-07-03] MEDS: MethylPREDNISolone 40 MG/ML VIAL IVP SCH ×2 (10:00→16:47)
[2020-07-03] MEDS: Budesonide/Formoterol 160/4.5 1 PUFF INH IH SCH ×2 (10:48→22:09)
[2020-07-03] MEDS: Artificial Tears SOLN 15 ML BOTTLE BOTH EYES SCH (19:59)
[2020-07-04] MEDS: hydrALAZINE 25 MG TABLET PO SCH ×2 (00:26→08:02)
[2020-07-04] MEDS: Ipratropium/Albuterol Neb 3 ML IH SCH ×2 (04:19→09:46)
[2020-07-04 04:58] LABS: Hematocrit 27.5 % (37.5-50.1); Hemoglobin 8.6 g/dL (12.9-16.9); Immature Granulocytes % 0.3 % (0-4); Immature Platelets 5.5 % (1.1-6.1); Lymphocytes # 0.2 K/mcL (0.6-4.6); Lymphocytes % 6.3 %; Mean Corpuscular HGB Conc 31.3 g/dL (31.6-35.5); Mean Corpuscular Hemoglobin 29.1 pg (28.0-33.3); Mean Corpuscular Volume 92.9 fL (83.0-100.0); Mean Platelet Volume 11.6 fL (9.4-12.4); Monocytes # 0.1 K/mcL (0.0-1.3); Monocytes % 2.8 %; Neutrophils # 2.9 K/mcL (1.6-8.9); Red Blood Count 2.96 M/mcL (4.19-5.50); Red Cell Distribution Width 13.5 % (11.5-14.5); Segmented Neutrophils % 90.6 %; White Blood Count 3.2 K/mcL (4.3-11.1)
[2020-07-04 05:05] LABS: Platelet Count 95 K/mcL (140-400)
[2020-07-04 05:15] LABS: Calcium 8.3 mg/dL (8.6-10.3); Magnesium 2.2 mg/dL (1.6-2.6); Phosphorous 3.8 mg/dL (2.7-4.5); Potassium 4.8 mEq/L (3.5-5.1)
[2020-07-04] MEDS: *HR* Heparin 5,000 UNIT/ML VIAL SQ SCH (05:45)
[2020-07-04] MEDS: MethylPREDNISolone 40 MG/ML VIAL IVP SCH (05:45)
[2020-07-04 07:38] VITALS: BP 158/76
[2020-07-04] MEDS ORDERED: Furosemide 40 MG TABLET PO SCH (08:00)
[2020-07-04] MEDS: Metoprolol XL (24 HR) Succ 50 MG TAB.ER.24H PO SCH (08:02)
[2020-07-04] MEDS: Artificial Tears SOLN 15 ML BOTTLE BOTH EYES SCH (08:02)
[2020-07-04] MEDS ORDERED: lisinopriL 20 MG TABLET PO SCH (09:00)
[2020-07-04] MEDS ORDERED: Aspirin Enteric Coated 81 MG Tablet PO SCH (09:00)
[2020-07-04] MEDS ORDERED: Finasteride 5 MG TABLET PO SCH (09:00)
[2020-07-04] MEDS ORDERED: Folic Acid 1 MG TABLET PO SCH (09:00)
[2020-07-04] MEDS ORDERED: Cyanocobalamin (B-12) 1,000 MCG TABLET PO SCH (09:00)
[2020-07-04] MEDS: Budesonide/Formoterol 160/4.5 1 PUFF INH IH SCH (09:46)
== END 2020-07-04 11:05 | disposition home health service (06) | DRG 291 ==
LOC: EMEROOARM 04:02 → 2ANU 04:02 → SUATTDRO 07:33 → 2ANU 09:15
PROVIDERS: ADMIT Student in an Organized Health Care Education/Training Program; ATTEND Family Medicine

== ENCOUNTER 2020-09-25 04:28 | Inpatient (IN) ==
[2020-09-25] MEDS ORDERED: Tdap (Boostrix) Vaccine 0.5 ML SYRINGE IM ONE (04:39)
[2020-09-25] MEDS ORDERED: Ipratropium/Albuterol Neb 3 ML IH ONE (04:39)
[2020-09-25] MEDS ORDERED: methylPREDNISolone 125 MG/2 ML VIAL IVP ONE (04:39)
[2020-09-25 04:54] LABS: Basophils % 0.3 %; Eosinophils # 0.2 K/mcL (0.0-0.6); Eosinophils % 1.8 %; Hematocrit 33.9 % (37.5-50.1); Hemoglobin 9.9 g/dL (12.9-16.9); Immature Granulocytes % 0.5 % (0-4); Lymphocytes # 1.4 K/mcL (0.6-4.6); Lymphocytes % 11.2 %; Mean Corpuscular HGB Conc 29.2 g/dL (31.6-35.5); Mean Corpuscular Hemoglobin 29.7 pg (28.0-33.3); Mean Corpuscular Volume 101.8 fL (83.0-100.0); Monocytes # 0.7 K/mcL (0.0-1.3); Monocytes % 5.9 %; Neutrophils # 9.7 K/mcL (1.6-8.9); Platelet Count 126 K/mcL (140-400); Red Blood Count 3.33 M/mcL (4.19-5.50); Red Cell Distribution Width 14.2 % (11.5-14.5); Segmented Neutrophils % 80.3 %; White Blood Count 12.1 K/mcL (4.3-11.1)
[2020-09-25] MEDS ORDERED: Isovue-370 500 ML BOTTLE IVP ONE (05:01)
[2020-09-25 05:02] LABS: ABG Base Excess 9 mEq/L (-2 to 3); ABG HCO3 42 mEq/L (21-27); ABG Oxygen Saturation 81 % (95-98); ABG PCO2 145 mmHg (35-45); ABG PH 7.07 pH Units (7.32-7.45); ABG PO2 68 mmHg (85-104); ABG TCO2 47 mEq/L (20-26); Blood Gas Modality NIV
[2020-09-25 05:09] LABS: INR 1.1; Prothrombin Time 12.6 Seconds (9.4-12.1)
[2020-09-25 05:15] LABS: Albumin 3.4 g/dL (3.5-5.7); Albumin/Globulin Ratio 1.3 (1.1-2.2); Bilirubin,Direct 0.1 mg/dL (0.0-0.2); Bilirubin,Indirect 0.3 mg/dL (0.0-1.0); Bilirubin,Total 0.4 mg/dL (0.3-1.0); Calcium 8.6 mg/dL (8.6-10.3); Globulin 2.7 g/dL (2.4-3.5); Potassium 4.6 mEq/L (3.5-5.1); Total Protein 6.1 g/dL (6.4-8.9); Troponin I 0.03 ng/mL (< 0.04)
[2020-09-25] MEDS ORDERED: Furosemide 40 MG/4 ML VIAL IVP ONE (05:46)
[2020-09-25] MEDS ORDERED: cefTRIAXone 1,000 MG in 0.9 % Sodium Chloride Mini Bag 100 ML IVPB ONE (05:46)
[2020-09-25] MEDS ORDERED: Azithromycin 500 MG in 0.9 % Sodium Chloride 250 ML IVPB ONE (05:46)
[2020-09-25] MEDS ORDERED: Naloxone 0.4 MG/ML INJ IVP PRN (07:52)
[2020-09-25] MEDS ORDERED: Ondansetron ODT 4 MG TAB.RAPDIS SL PRN (07:52)
[2020-09-25] MEDS ORDERED: Mag Hydrox/Al Hydrox/Simeth 30 ML UDC PO PRN (07:52)
[2020-09-25] MEDS ORDERED: Albuterol 2.5 MG/3 ML NEBULIZER IH PRN (07:57)
[2020-09-25] MEDS ORDERED: cefTRIAXone 1,000 MG in Water for inj. (sterile) 10 ML IVP SCH (09:00)
[2020-09-25] MEDS: Ipratropium/Albuterol Neb 3 ML IH SCH ×4 (10:43→20:05)
[2020-09-25] MEDS: *HR* Heparin 5,000 UNIT/ML VIAL SQ SCH (17:05)
[2020-09-25] MEDS: methylPREDNISolone 125 MG/2 ML VIAL IVP SCH (17:05)
[2020-09-25] MEDS: Furosemide 40 MG/4 ML VIAL IVP SCH (17:05)
[2020-09-25] MEDS: hydrALAZINE 25 MG TABLET PO SCH (18:01)
[2020-09-25] MEDS: Melatonin 3 MG TABLET PO PRN (19:46)
[2020-09-26] MEDS: Ipratropium/Albuterol Neb 3 ML IH SCH ×7 (00:12→23:29)
[2020-09-26] MEDS: hydrALAZINE 25 MG TABLET PO SCH ×3 (01:47→16:44)
[2020-09-26 03:32] LABS: Calcium 8.6 mg/dL (8.6-10.3); Potassium 4.8 mEq/L (3.5-5.1)
[2020-09-26 05:04] LABS: Red Cell Distribution Width 14.1 % (11.5-14.5)
[2020-09-26 05:06] LABS: Hematocrit 25.7 % (37.5-50.1); Hemoglobin 7.8 g/dL (12.9-16.9); Immature Granulocytes % 0.5 % (0-4); Immature Platelets 7.4 % (1.1-6.1); Lymphocytes # 0.1 K/mcL (0.6-4.6); Lymphocytes % 3.5 %; Mean Corpuscular HGB Conc 30.4 g/dL (31.6-35.5); Mean Corpuscular Hemoglobin 29.2 pg (28.0-33.3); Mean Corpuscular Volume 96.3 fL (83.0-100.0); Mean Platelet Volume 12.5 fL (9.4-12.4); Monocytes # 0.1 K/mcL (0.0-1.3); Monocytes % 3.8 %; Neutrophils # 3.4 K/mcL (1.6-8.9); Red Blood Count 2.67 M/mcL (4.19-5.50); Segmented Neutrophils % 92.2 %; White Blood Count 3.7 K/mcL (4.3-11.1)
[2020-09-26 05:29] LABS: Platelet Count 72 K/mcL (140-400)
[2020-09-26 05:30] LABS: Anisocytosis 1+ (Not Present); Large Platelets Present (Not Present); Platelet Estimate Slight Decrease (Normal)
[2020-09-26 05:31] LABS: Microcytosis Present (Not Present)
[2020-09-26] MEDS: methylPREDNISolone 125 MG/2 ML VIAL IVP SCH ×3 (05:51→16:44)
[2020-09-26] MEDS: cefTRIAXone 1,000 MG in Water for inj. (sterile) 10 ML IVP SCH (05:51)
[2020-09-26] MEDS: *HR* Heparin 5,000 UNIT/ML VIAL SQ SCH ×2 (05:52→16:43)
[2020-09-26 07:57] LABS: ABG Base Excess 11 mEq/L (-2 to 3); ABG HCO3 37 mEq/L (21-27); ABG Oxygen Saturation 99 % (95-98); ABG PCO2 61 mmHg (35-45); ABG PO2 124 mmHg (85-104); ABG TCO2 39 mEq/L (20-26); Blood Gas VT 500 cc
[2020-09-26] MEDS ORDERED: Azithromycin 500 MG in 0.9 % Sodium Chloride 250 ML IVPB SCH (08:00)
[2020-09-26] MEDS: Cyanocobalamin (B-12) 1,000 MCG TABLET PO SCH (08:44)
[2020-09-26] MEDS: Folic Acid 1 MG TABLET PO SCH (08:44)
[2020-09-26] MEDS: Furosemide 40 MG/4 ML VIAL IVP SCH ×2 (08:44→16:44)
[2020-09-26] MEDS: Finasteride 5 MG TABLET PO SCH (08:44)
[2020-09-26] MEDS: Aspirin Enteric Coated 81 MG Tablet PO SCH (08:44)
[2020-09-26] MEDS: Metoprolol XL (24 HR) Succ 50 MG TAB.ER.24H PO SCH (08:44)
[2020-09-26] MEDS ORDERED: lisinopriL 20 MG TABLET PO SCH (09:00)
[2020-09-26 12:54] LABS: RBC,Pleural Fluid 4000 RBC/mcL
[2020-09-26 12:59] LABS: Glucose,Pleural Fluid 198 mg/dL (No Ref Range); LDH,Pleural Fluid 52 Units/L (No Ref Range); Total Protein,Pleural Fluid < 2.0 g/dL
[2020-09-26 19:10] LABS: Appearance of Pleural Fl Hazy (Clear)
[2020-09-26 19:13] LABS: Basophils,Pleural Fluid 0 %; Eosinophils,Pleural Fluid 0 %
[2020-09-26] MEDS: Melatonin 3 MG TABLET PO PRN (22:15)
[2020-09-26] MEDS: Budesonide/Formoterol 160/4.5 1 PUFF INH IH SCH (23:29)
[2020-09-27 01:40] LABS: Immature Granulocytes % 0.6 % (0-4)
[2020-09-27 01:41] LABS: Hematocrit 22.6 % (37.5-50.1); Hemoglobin 6.9 g/dL (12.9-16.9); Immature Platelets 8.4 % (1.1-6.1); Lymphocytes # 0.2 K/mcL (0.6-4.6); Lymphocytes % 3.8 %; Mean Corpuscular HGB Conc 30.5 g/dL (31.6-35.5); Mean Corpuscular Hemoglobin 29.2 pg (28.0-33.3); Mean Corpuscular Volume 95.8 fL (83.0-100.0); Mean Platelet Volume 12.9 fL (9.4-12.4); Monocytes # 0.2 K/mcL (0.0-1.3); Monocytes % 3.2 %; Neutrophils # 4.3 K/mcL (1.6-8.9); Red Blood Count 2.36 M/mcL (4.19-5.50); Red Cell Distribution Width 14.1 % (11.5-14.5); Segmented Neutrophils % 92.4 %; White Blood Count 4.7 K/mcL (4.3-11.1)
[2020-09-27 01:43] LABS: Platelet Count 79 K/mcL (140-400)
[2020-09-27] MEDS: hydrALAZINE 25 MG TABLET PO SCH ×3 (01:44→17:04)
[2020-09-27 01:59] LABS: Calcium 7.7 mg/dL (8.6-10.3); Potassium 4.9 mEq/L (3.5-5.1)
[2020-09-27] MEDS ORDERED: 0.9 % Sodium Chloride 250 ML ONE (03:36)
[2020-09-27] MEDS: Ipratropium/Albuterol Neb 3 ML IH SCH ×6 (04:00→23:21)
[2020-09-27] MEDS: *HR* Heparin 5,000 UNIT/ML VIAL SQ SCH ×2 (05:11→17:07)
[2020-09-27] MEDS: cefTRIAXone 1,000 MG in Water for inj. (sterile) 10 ML IVP SCH (05:19)
[2020-09-27] MEDS: methylPREDNISolone 125 MG/2 ML VIAL IVP SCH ×2 (05:19→17:04)
[2020-09-27] MEDS: Budesonide/Formoterol 160/4.5 1 PUFF INH IH SCH ×2 (07:33→19:25)
[2020-09-27] MEDS ORDERED: 0.9 % Sodium Chloride 250 ML IVC SCH (07:45)
[2020-09-27 08:05] LABS: ABG Base Excess 10 mEq/L (-2 to 3); ABG HCO3 35 mEq/L (21-27); ABG Oxygen Saturation 99 % (95-98); ABG PCO2 53 mmHg (35-45); ABG PH 7.43 pH Units (7.32-7.45); ABG PO2 134 mmHg (85-104); ABG TCO2 37 mEq/L (20-26); Blood Gas Modality BiLevel
[2020-09-27] MEDS: Furosemide 40 MG/4 ML VIAL IVP SCH ×2 (08:50→17:07)
[2020-09-27] MEDS: Folic Acid 1 MG TABLET PO SCH (08:51)
[2020-09-27] MEDS: Finasteride 5 MG TABLET PO SCH (08:51)
[2020-09-27] MEDS: Aspirin Enteric Coated 81 MG Tablet PO SCH (08:51)
[2020-09-27] MEDS: Metoprolol XL (24 HR) Succ 50 MG TAB.ER.24H PO SCH (08:51)
[2020-09-27] MEDS: Cyanocobalamin (B-12) 1,000 MCG TABLET PO SCH (08:52)
[2020-09-27 09:24] LABS: Hematocrit 27.6 % (37.5-50.1)
[2020-09-27 09:29] LABS: Hemoglobin 8.7 g/dL (12.9-16.9)
[2020-09-27] MEDS: Albumin 25% 25gram/100mL 25 GM/100 ML IV.SOLN IVPB SCH (17:08)
[2020-09-28] MEDS: hydrALAZINE 25 MG TABLET PO SCH ×3 (01:55→17:34)
[2020-09-28 02:13] LABS: Hematocrit 25.3 % (37.5-50.1); Mean Corpuscular Volume 95.1 fL (83.0-100.0); Red Blood Count 2.66 M/mcL (4.19-5.50)
[2020-09-28 02:15] LABS: Hemoglobin 7.8 g/dL (12.9-16.9); Immature Granulocytes % 0.5 % (0-4); Immature Platelets 7.4 % (1.1-6.1); Lymphocytes # 0.2 K/mcL (0.6-4.6); Lymphocytes % 3.7 %; Mean Corpuscular HGB Conc 30.8 g/dL (31.6-35.5); Mean Corpuscular Hemoglobin 29.3 pg (28.0-33.3); Mean Platelet Volume 12.3 fL (9.4-12.4); Monocytes # 0.1 K/mcL (0.0-1.3); Monocytes % 2.7 %; Neutrophils # 4.1 K/mcL (1.6-8.9); Red Cell Distribution Width 14.2 % (11.5-14.5); Segmented Neutrophils % 93.1 %; White Blood Count 4.4 K/mcL (4.3-11.1)
[2020-09-28 02:34] LABS: Magnesium 2.4 mg/dL (1.6-2.6); Phosphorous 3.6 mg/dL (2.7-4.5); Platelet Count 84 K/mcL (140-400)
[2020-09-28 02:37] LABS: Calcium 7.8 mg/dL (8.6-10.3); Potassium 4.8 mEq/L (3.5-5.1)
[2020-09-28] MEDS: Ipratropium/Albuterol Neb 3 ML IH SCH ×5 (03:25→22:18)
[2020-09-28] MEDS: *HR* Heparin 5,000 UNIT/ML VIAL SQ SCH ×2 (04:42→17:36)
[2020-09-28] MEDS: Albumin 25% 25gram/100mL 25 GM/100 ML IV.SOLN IVPB SCH (05:02)
[2020-09-28] MEDS: cefTRIAXone 1,000 MG in Water for inj. (sterile) 10 ML IVP SCH (05:03)
[2020-09-28] MEDS: methylPREDNISolone 125 MG/2 ML VIAL IVP SCH ×2 (05:03→17:34)
[2020-09-28] MEDS: Budesonide/Formoterol 160/4.5 1 PUFF INH IH SCH ×2 (07:26→22:18)
[2020-09-28] MEDS: Furosemide 40 MG/4 ML VIAL IVP SCH (07:37)
[2020-09-28] MEDS: Finasteride 5 MG TABLET PO SCH (07:38)
[2020-09-28] MEDS: Aspirin Enteric Coated 81 MG Tablet PO SCH (07:38)
[2020-09-28] MEDS: Metoprolol XL (24 HR) Succ 50 MG TAB.ER.24H PO SCH (07:38)
[2020-09-28] MEDS: Folic Acid 1 MG TABLET PO SCH (07:38)
[2020-09-28] MEDS: Cyanocobalamin (B-12) 1,000 MCG TABLET PO SCH (07:38)
[2020-09-28] MEDS ORDERED: Ipratropium/Albuterol Neb 3 ML IH PRN (12:22)
[2020-09-28] MEDS: Acetylcysteine 10% 2 ML INHSOL IH SCH ×3 (15:47→22:18)
[2020-09-28] MEDS: Doxycycline 100 MG CAPSULE PO SCH (21:56)
[2020-09-29 01:26] LABS: Hematocrit 28.2 % (37.5-50.1); Hemoglobin 8.5 g/dL (12.9-16.9); Immature Platelets 6.6 % (1.1-6.1); Mean Corpuscular HGB Conc 30.1 g/dL (31.6-35.5); Mean Corpuscular Volume 96.2 fL (83.0-100.0); Mean Platelet Volume 12.2 fL (9.4-12.4); Red Blood Count 2.93 M/mcL (4.19-5.50); White Blood Count 4.5 K/mcL (4.3-11.1)
[2020-09-29 01:46] LABS: Calcium 7.8 mg/dL (8.6-10.3); Magnesium 2.4 mg/dL (1.6-2.6); Phosphorous 3.4 mg/dL (2.7-4.5); Potassium 4.7 mEq/L (3.5-5.1)
[2020-09-29 02:10] LABS: Folate 17.4 ng/mL (3.0-16.0)
[2020-09-29] MEDS: hydrALAZINE 25 MG TABLET PO SCH ×3 (02:23→16:39)
[2020-09-29] MEDS: Acetylcysteine 10% 2 ML INHSOL IH SCH ×4 (03:47→22:17)
[2020-09-29] MEDS: Ipratropium/Albuterol Neb 3 ML IH SCH ×4 (03:47→22:17)
[2020-09-29] MEDS: cefTRIAXone 1,000 MG in Water for inj. (sterile) 10 ML IVP SCH (06:33)
[2020-09-29] MEDS: *HR* Heparin 5,000 UNIT/ML VIAL SQ SCH ×2 (06:35→16:36)
[2020-09-29] MEDS: Folic Acid 1 MG TABLET PO SCH (08:08)
[2020-09-29] MEDS: Aspirin Enteric Coated 81 MG Tablet PO SCH (08:08)
[2020-09-29] MEDS: Finasteride 5 MG TABLET PO SCH (08:08)
[2020-09-29] MEDS: Cyanocobalamin (B-12) 1,000 MCG TABLET PO SCH (08:08)
[2020-09-29] MEDS: Furosemide 40 MG TABLET PO SCH (08:09)
[2020-09-29] MEDS: Metoprolol XL (24 HR) Succ 50 MG TAB.ER.24H PO SCH (08:09)
[2020-09-29] MEDS: Calcium Gluconate 1gm/50mL 1 GM/50 ML BAG IVPB SCH ×2 (08:09→10:30)
[2020-09-29] MEDS: Doxycycline 100 MG CAPSULE PO SCH ×2 (08:09→21:44)
[2020-09-29] MEDS ORDERED: MethylPREDNISolone 40 MG/ML VIAL IVP SCH (09:00)
[2020-09-29] MEDS: Budesonide/Formoterol 160/4.5 1 PUFF INH IH SCH ×2 (10:50→22:17)
[2020-09-29] MEDS: Melatonin 3 MG TABLET PO PRN (21:44)
[2020-09-30] MEDS: hydrALAZINE 25 MG TABLET PO SCH ×2 (01:04→08:01)
[2020-09-30 01:27] LABS: Hematocrit 29.4 % (37.5-50.1); Hemoglobin 8.8 g/dL (12.9-16.9); Mean Corpuscular HGB Conc 29.9 g/dL (31.6-35.5); Mean Corpuscular Hemoglobin 29.2 pg (28.0-33.3); Mean Corpuscular Volume 97.7 fL (83.0-100.0); Mean Platelet Volume 12.2 fL (9.4-12.4); Red Blood Count 3.01 M/mcL (4.19-5.50); Red Cell Distribution Width 13.8 % (11.5-14.5); White Blood Count 4.5 K/mcL (4.3-11.1)
[2020-09-30 01:29] LABS: Platelet Count 93 K/mcL (140-400)
[2020-09-30 01:45] LABS: Magnesium 2.4 mg/dL (1.6-2.6); Phosphorous 3.4 mg/dL (2.7-4.5); Potassium 4.3 mEq/L (3.5-5.1)
[2020-09-30] MEDS: Ipratropium/Albuterol Neb 3 ML IH SCH ×2 (03:25→10:36)
[2020-09-30] MEDS: Acetylcysteine 10% 2 ML INHSOL IH SCH ×2 (03:25→10:35)
[2020-09-30] MEDS: cefTRIAXone 1,000 MG in Water for inj. (sterile) 10 ML IVP SCH (05:07)
[2020-09-30] MEDS: *HR* Heparin 5,000 UNIT/ML VIAL SQ SCH (05:07)
[2020-09-30] MEDS: Furosemide 40 MG TABLET PO SCH (08:00)
[2020-09-30] MEDS: Folic Acid 1 MG TABLET PO SCH (08:00)
[2020-09-30] MEDS: Cyanocobalamin (B-12) 1,000 MCG TABLET PO SCH (08:00)
[2020-09-30] MEDS: Finasteride 5 MG TABLET PO SCH (08:00)
[2020-09-30] MEDS: Metoprolol XL (24 HR) Succ 50 MG TAB.ER.24H PO SCH (08:00)
[2020-09-30] MEDS: Aspirin Enteric Coated 81 MG Tablet PO SCH (08:00)
[2020-09-30] MEDS: Doxycycline 100 MG CAPSULE PO SCH (08:01)
[2020-09-30] MEDS ORDERED: Iron Sucrose Complex 400 MG in 0.9 % Sodium Chloride 250 ML IVPB ONE (09:00)
[2020-09-30] MEDS ORDERED: predniSONE 20 MG TABLET PO SCH (09:00)
[2020-09-30 09:51] LABS: Adenovirus Not Detected (Not Detect); Bordetella Pertussis Not Detected (Not Detect); Chlamydophila pneumoniae Not Detected (Not Detect); Coronavirus 229E Not Detected (Not Detect); Coronavirus HKU1 Not Detected (Not Detect); Coronavirus NL63 Not Detected (Not Detect); Coronavirus OC43 Not Detected (Not Detect); Human Metapneumovirus Not Detected (Not Detect); Human Rhinovirus/Enterovirus Not Detected (Not Detect); Influenza A Subtype 2009 H1 Not Detected (Not Detect); Influenza B Not Detected (Not Detect); Mycoplasma pneumoniae Not Detected (Not Detect); Parainfluenza Virus 1 Not Detected (Not Detect); Parainfluenza Virus 2 Not Detected (Not Detect); Parainfluenza Virus 3 Not Detected (Not Detect); Parainfluenza Virus 4 Not Detected (Not Detect); Respiratory Syncytial Virus Not Detected (Not Detect); SARS-CoV-2 Not Detected (Not Detect)
[2020-09-30] MEDS: Budesonide/Formoterol 160/4.5 1 PUFF INH IH SCH (10:36)
[2020-09-30 11:31] VITALS: BP 161/75
== END 2020-09-30 13:47 | disposition other institution (70) | DRG 871 ==
LOC: SUATTDRO → EMEROOARM 04:28 → SUATTDRO 09:54 → 2NNU 09:54
PROVIDERS: ADMIT Family Medicine; ATTEND Internal Medicine

== ENCOUNTER 2020-10-02 21:36 | Inpatient (IN) ==
[2020-10-03] MEDS ORDERED: Acetaminophen 325 MG TABLET PO PRN (02:19)
[2020-10-03] MEDS ORDERED: Naloxone 0.4 MG/ML INJ IVP PRN (02:19)
[2020-10-03] MEDS ORDERED: Melatonin 3 MG TABLET PO PRN (02:19)
[2020-10-03] MEDS ORDERED: *HR* OxyCODONE Immed Rel 5 MG TABLET PO PRN (02:19)
[2020-10-03] MEDS ORDERED: Ondansetron 4 MG/2 ML VIAL IVP PRN (02:19)
[2020-10-03] MEDS ORDERED: Albuterol Neb 1.25 MG/3 ML VIAL IH PRN (02:21)
[2020-10-03] MEDS ORDERED: Fluticasone Propionate Nasal 50 MCG/SPRAY BOTTLE NS PRN (02:21)
[2020-10-03 05:18] LABS: Eosinophils % 0.2 %; Hemoglobin 9.4 g/dL (12.9-16.9); Immature Granulocytes % 0.7 % (0-4); Lymphocytes # 0.3 K/mcL (0.6-4.6); Lymphocytes % 6.1 %; Mean Corpuscular HGB Conc 30.3 g/dL (31.6-35.5); Mean Corpuscular Hemoglobin 29.7 pg (28.0-33.3); Mean Corpuscular Volume 98.1 fL (83.0-100.0); Mean Platelet Volume 10.9 fL (9.4-12.4); Monocytes # 0.3 K/mcL (0.0-1.3); Monocytes % 6.1 %; Neutrophils # 4.7 K/mcL (1.6-8.9); Platelet Count 113 K/mcL (140-400); Red Blood Count 3.16 M/mcL (4.19-5.50); Red Cell Distribution Width 14.5 % (11.5-14.5); Segmented Neutrophils % 86.9 %; White Blood Count 5.4 K/mcL (4.3-11.1)
[2020-10-03 05:26] LABS: Prothrombin Time 11.4 Seconds (9.4-12.1)
[2020-10-03 05:37] LABS: Calcium 7.9 mg/dL (8.6-10.3); Potassium 4.6 mEq/L (3.5-5.1)
[2020-10-03] MEDS: hydrALAZINE 25 MG TABLET PO SCH ×3 (06:14→21:45)
[2020-10-03] MEDS: Budesonide/Formoterol 160/4.5 1 PUFF INH IH SCH ×2 (07:52→22:54)
[2020-10-03] MEDS: Lactobacillus 1 EACH CAP.SPRINK PO SCH ×2 (08:16→21:45)
[2020-10-03] MEDS: Metoprolol XL (24 HR) Succ 50 MG TAB.ER.24H PO SCH (08:16)
[2020-10-03] MEDS: Folic Acid 1 MG TABLET PO SCH (08:16)
[2020-10-03] MEDS: Aspirin Enteric Coated 81 MG Tablet PO SCH (08:16)
[2020-10-03] MEDS: Furosemide 40 MG TABLET PO SCH ×2 (08:16→17:13)
[2020-10-03] MEDS: Finasteride 5 MG TABLET PO SCH (08:16)
[2020-10-03] MEDS ORDERED: predniSONE 20 MG TABLET PO SCH (09:00)
[2020-10-03] MEDS ORDERED: *HR* FentaNYL (PF) 100 MCG/2 ML VIAL ONE (10:53)
[2020-10-03] MEDS ORDERED: *HR* Propofol 200 MG/20 ML VIAL IVP ONE (10:53)
[2020-10-03] MEDS ORDERED: Ondansetron 4 MG/2 ML VIAL ONE (10:54)
[2020-10-03] MEDS ORDERED: Lidocaine -MPF 2% 2 ML VIAL ONE (10:54)
[2020-10-03] MEDS ORDERED: *HR* Succinylcholine 200 MG/10 ML VIAL IVP ONE (10:54)
[2020-10-03] MEDS ORDERED: Lidocaine -MPF 4% 5 ML AMPUL ONE (10:54)
[2020-10-03] MEDS ORDERED: EPHEDrine 50 MG/ML VIAL ONE (11:51)
[2020-10-03] MEDS ORDERED: Albuterol 2.5 MG/3 ML NEBULIZER IH PRN (12:03)
[2020-10-03] MEDS ORDERED: Ipratropium Neb 0.5 MG NEBULIZER IH PRN (12:26)
[2020-10-03] MEDS: Ipratropium/Albuterol Neb 3 ML IH SCH ×3 (14:03→22:54)
[2020-10-03] MEDS: Cefepime HCl 2,000 MG in 0.9 % Sodium Chloride Mini Bag 100 ML IVPB SCH (15:25)
[2020-10-03] MEDS: Vancomycin 1,250 MG/262.5 ML IV.SOLN IVPB SCH (16:00)
[2020-10-03 16:14] LABS: Appearance of Body Fluid Slightly Hazy (Clear); Volume of Body Fluid 20 mL
[2020-10-03 16:21] LABS: Appearance of Body Fluid Slightly Hazy (Clear); Volume of Body Fluid 25 mL
[2020-10-03] MEDS: methylPREDNISolone 125 MG/2 ML VIAL IVP SCH (18:09)
[2020-10-03] MEDS: levoFLOXacin 750 MG/150 ML 750 MG/150 ML BAG IVPB SCH (18:10)
[2020-10-03] MEDS: Benzonatate 100 MG CAPSULE PO PRN (18:20)
[2020-10-04 00:59] LABS: Hematocrit 32.4 % (37.5-50.1); Hemoglobin 9.8 g/dL (12.9-16.9); Immature Granulocytes % 0.6 % (0-4); Lymphocytes # 0.1 K/mcL (0.6-4.6); Mean Corpuscular HGB Conc 30.2 g/dL (31.6-35.5); Mean Corpuscular Hemoglobin 29.4 pg (28.0-33.3); Mean Corpuscular Volume 97.3 fL (83.0-100.0); Mean Platelet Volume 10.4 fL (9.4-12.4); Monocytes # 0.1 K/mcL (0.0-1.3); Monocytes % 1.7 %; Neutrophils # 5.2 K/mcL (1.6-8.9); Platelet Count 128 K/mcL (140-400); Red Blood Count 3.33 M/mcL (4.19-5.50); Red Cell Distribution Width 14.7 % (11.5-14.5); Segmented Neutrophils % 95.7 %; White Blood Count 5.4 K/mcL (4.3-11.1)
[2020-10-04 01:13] LABS: Calcium 7.9 mg/dL (8.6-10.3); Potassium 5.3 mEq/L (3.5-5.1)
[2020-10-04 01:43] LABS: Platelet Estimate Normal (Normal)
[2020-10-04] MEDS: Ipratropium/Albuterol Neb 3 ML IH SCH ×4 (04:01→22:54)
[2020-10-04] MEDS: Cefepime HCl 2,000 MG in 0.9 % Sodium Chloride Mini Bag 100 ML IVPB SCH ×2 (04:08→15:13)
[2020-10-04] MEDS: methylPREDNISolone 125 MG/2 ML VIAL IVP SCH ×2 (05:33→17:49)
[2020-10-04] MEDS: hydrALAZINE 25 MG TABLET PO SCH ×3 (05:35→19:56)
[2020-10-04] MEDS: Folic Acid 1 MG TABLET PO SCH (09:13)
[2020-10-04] MEDS: Aspirin Enteric Coated 81 MG Tablet PO SCH (09:13)
[2020-10-04] MEDS: Benzonatate 100 MG CAPSULE PO PRN (09:13)
[2020-10-04] MEDS: Lactobacillus 1 EACH CAP.SPRINK PO SCH ×2 (09:13→19:57)
[2020-10-04] MEDS: Finasteride 5 MG TABLET PO SCH (09:13)
[2020-10-04] MEDS: Metoprolol XL (24 HR) Succ 50 MG TAB.ER.24H PO SCH (09:14)
[2020-10-04] MEDS: Budesonide/Formoterol 160/4.5 1 PUFF INH IH SCH ×2 (10:24→22:54)
[2020-10-04] MEDS ORDERED: *HR* Dextrose 50 % in Water (Vial) 50 ML VIAL IVP PRN (15:42)
[2020-10-04] MEDS ORDERED: Dextrose Gel 15 GM/37.5 ML TUBE PO PRN ×2 (15:42)
[2020-10-04] MEDS ORDERED: D5% in Water 1,000 ML IVC PRN (15:42)
[2020-10-04] MEDS: Vancomycin 1,250 MG/262.5 ML IV.SOLN IVPB SCH (16:32)
[2020-10-04] MEDS: Furosemide 40 MG TABLET PO SCH (16:34)
[2020-10-04] MEDS: Insulin LISPRO 300 UNITS/3 ML VIAL SUBQ SCH (17:49)
[2020-10-05 01:29] LABS: Hematocrit 31.1 % (37.5-50.1); Hemoglobin 9.7 g/dL (12.9-16.9); Immature Granulocytes % 0.7 % (0-4); Lymphocytes # 0.2 K/mcL (0.6-4.6); Lymphocytes % 2.9 %; Mean Corpuscular HGB Conc 31.2 g/dL (31.6-35.5); Mean Corpuscular Hemoglobin 30.1 pg (28.0-33.3); Mean Corpuscular Volume 96.6 fL (83.0-100.0); Mean Platelet Volume 10.8 fL (9.4-12.4); Monocytes # 0.1 K/mcL (0.0-1.3); Monocytes % 2.1 %; Neutrophils # 5.8 K/mcL (1.6-8.9); Platelet Count 116 K/mcL (140-400); Red Blood Count 3.22 M/mcL (4.19-5.50); Red Cell Distribution Width 14.9 % (11.5-14.5); Segmented Neutrophils % 94.3 %; White Blood Count 6.1 K/mcL (4.3-11.1)
[2020-10-05 01:49] LABS: Calcium 7.8 mg/dL (8.6-10.3); Potassium 4.9 mEq/L (3.5-5.1)
[2020-10-05 02:19] LABS: Platelet Estimate Slight Decrease (Normal)
[2020-10-05 03:03] LABS: Estimated Average Glucose 97 mg/dl
[2020-10-05] MEDS: Cefepime HCl 2,000 MG in 0.9 % Sodium Chloride Mini Bag 100 ML IVPB SCH ×2 (03:28→16:44)
[2020-10-05] MEDS: Ipratropium/Albuterol Neb 3 ML IH SCH ×4 (03:49→22:18)
[2020-10-05] MEDS: methylPREDNISolone 125 MG/2 ML VIAL IVP SCH (04:26)
[2020-10-05] MEDS: hydrALAZINE 25 MG TABLET PO SCH ×2 (04:26→16:42)
[2020-10-05] MEDS: Insulin LISPRO 300 UNITS/3 ML VIAL SUBQ SCH ×3 (07:28→16:44)
[2020-10-05] MEDS: Aspirin Enteric Coated 81 MG Tablet PO SCH (09:50)
[2020-10-05] MEDS: Metoprolol XL (24 HR) Succ 50 MG TAB.ER.24H PO SCH (09:50)
[2020-10-05] MEDS: Folic Acid 1 MG TABLET PO SCH (09:50)
[2020-10-05] MEDS: predniSONE 20 MG TABLET PO SCH (09:50)
[2020-10-05] MEDS: Lactobacillus 1 EACH CAP.SPRINK PO SCH ×2 (09:50→20:27)
[2020-10-05] MEDS: Finasteride 5 MG TABLET PO SCH (09:50)
[2020-10-05] MEDS: Budesonide/Formoterol 160/4.5 1 PUFF INH IH SCH ×2 (11:30→22:19)
[2020-10-05 13:15] LABS: Complement C3 87 mg/dL (87-200)
[2020-10-05] MEDS ORDERED: E-Z-PAQUE (BARIUM SULF) SUSP 1 BOTTLE PO ONE (14:09)
[2020-10-05] MEDS ORDERED: E-Z-HD (BARIUM SULF) SUSPENSION PO ONE (14:09)
[2020-10-05] MEDS: levoFLOXacin 750 MG/150 ML 750 MG/150 ML BAG IVPB SCH (16:43)
[2020-10-05] MEDS: Vancomycin 1,250 MG/262.5 ML IV.SOLN IVPB SCH (16:43)
[2020-10-05] MEDS: amLODIPine 5 MG TABLET PO SCH (20:27)
[2020-10-06 01:42] LABS: Hematocrit 30.5 % (37.5-50.1); Hemoglobin 9.3 g/dL (12.9-16.9); Immature Granulocytes % 0.5 % (0-4); Lymphocytes # 0.2 K/mcL (0.6-4.6); Lymphocytes % 3.4 %; Mean Corpuscular HGB Conc 30.5 g/dL (31.6-35.5); Mean Corpuscular Hemoglobin 29.7 pg (28.0-33.3); Mean Corpuscular Volume 97.4 fL (83.0-100.0); Mean Platelet Volume 10.7 fL (9.4-12.4); Monocytes # 0.3 K/mcL (0.0-1.3); Monocytes % 5.6 %; Neutrophils # 5.4 K/mcL (1.6-8.9); Platelet Count 102 K/mcL (140-400); Red Blood Count 3.13 M/mcL (4.19-5.50); Red Cell Distribution Width 15.1 % (11.5-14.5); Segmented Neutrophils % 90.5 %; White Blood Count 5.9 K/mcL (4.3-11.1)
[2020-10-06 02:08] LABS: Albumin 2.7 g/dL (3.5-5.7); Albumin/Globulin Ratio 1.4 (1.1-2.2); Bilirubin,Direct 0.1 mg/dL (0.0-0.2); Bilirubin,Indirect 0.3 mg/dL (0.0-1.0); Bilirubin,Total 0.4 mg/dL (0.3-1.0); Calcium 7.7 mg/dL (8.6-10.3); Globulin 1.9 g/dL (2.4-3.5); Magnesium 2.2 mg/dL (1.6-2.6); Phosphorous 3.5 mg/dL (2.7-4.5); Potassium 4.9 mEq/L (3.5-5.1); Total Protein 4.6 g/dL (6.4-8.9)
[2020-10-06 02:32] LABS: Folate > 22.3 ng/mL (3.0-16.0); Vitamin B12 1015 pg/mL (250-1100)
[2020-10-06] MEDS: Cefepime HCl 2,000 MG in 0.9 % Sodium Chloride Mini Bag 100 ML IVPB SCH ×2 (03:09→15:49)
[2020-10-06] MEDS: Ipratropium/Albuterol Neb 3 ML IH SCH ×4 (03:24→22:50)
[2020-10-06 04:53] LABS: Influenza A PCR Body Fluid NOT DETECTED; Influenza B PCR Body Fluid NOT DETECTED; RVP Body Fluid Source BAL
[2020-10-06] MEDS: Insulin LISPRO 300 UNITS/3 ML VIAL SUBQ SCH ×3 (07:17→15:49)
[2020-10-06] MEDS: Finasteride 5 MG TABLET PO SCH (07:36)
[2020-10-06] MEDS: Lactobacillus 1 EACH CAP.SPRINK PO SCH ×2 (07:36→19:46)
[2020-10-06] MEDS: Folic Acid 1 MG TABLET PO SCH (07:36)
[2020-10-06] MEDS: Metoprolol XL (24 HR) Succ 50 MG TAB.ER.24H PO SCH ×2 (07:36→07:49)
[2020-10-06] MEDS: predniSONE 20 MG TABLET PO SCH (07:36)
[2020-10-06] MEDS: Aspirin Enteric Coated 81 MG Tablet PO SCH (07:37)
[2020-10-06 11:08] LABS: RSV PCR Body Fluid NOT DETECTED
[2020-10-06] MEDS: Budesonide/Formoterol 160/4.5 1 PUFF INH IH SCH ×2 (11:12→22:51)
[2020-10-06] MEDS: amLODIPine 5 MG TABLET PO SCH (19:46)
[2020-10-07 00:07] LABS: HSV Source BAL
[2020-10-07] MEDS: Cefepime HCl 2,000 MG in 0.9 % Sodium Chloride Mini Bag 100 ML IVPB SCH (02:57)
[2020-10-07] MEDS: Ipratropium/Albuterol Neb 3 ML IH SCH ×4 (03:59→22:00)
[2020-10-07 06:42] LABS: Calcium 7.7 mg/dL (8.6-10.3); Magnesium 2.3 mg/dL (1.6-2.6); Potassium 4.7 mEq/L (3.5-5.1)
[2020-10-07] MEDS: Insulin LISPRO 300 UNITS/3 ML VIAL SUBQ SCH ×3 (07:11→17:49)
[2020-10-07 07:20] LABS: Eosinophils % 0.4 %; Hemoglobin 9.2 g/dL (12.9-16.9); Mean Platelet Volume 10.8 fL (9.4-12.4); Red Cell Distribution Width 15.3 % (11.5-14.5)
[2020-10-07 07:22] LABS: Hematocrit 29.9 % (37.5-50.1); Immature Granulocytes % 0.6 % (0-4); Immature Platelets 3.2 % (1.1-6.1); Lymphocytes # 0.4 K/mcL (0.6-4.6); Mean Corpuscular HGB Conc 30.8 g/dL (31.6-35.5); Mean Corpuscular Hemoglobin 29.9 pg (28.0-33.3); Mean Corpuscular Volume 97.1 fL (83.0-100.0); Monocytes # 0.3 K/mcL (0.0-1.3); Monocytes % 5.4 %; Neutrophils # 4.6 K/mcL (1.6-8.9); Red Blood Count 3.08 M/mcL (4.19-5.50); Segmented Neutrophils % 85.6 %; White Blood Count 5.4 K/mcL (4.3-11.1)
[2020-10-07 07:26] LABS: Platelet Count 83 K/mcL (140-400)
[2020-10-07] MEDS: Furosemide 40 MG/4 ML VIAL IVP SCH (09:32)
[2020-10-07] MEDS: Aspirin Enteric Coated 81 MG Tablet PO SCH (09:32)
[2020-10-07] MEDS: Finasteride 5 MG TABLET PO SCH (09:32)
[2020-10-07] MEDS: Folic Acid 1 MG TABLET PO SCH (09:32)
[2020-10-07] MEDS: predniSONE 20 MG TABLET PO SCH (09:32)
[2020-10-07] MEDS: Metoprolol XL (24 HR) Succ 50 MG TAB.ER.24H PO SCH (09:32)
[2020-10-07] MEDS: Lactobacillus 1 EACH CAP.SPRINK PO SCH ×2 (09:32→20:20)
[2020-10-07] MEDS: Budesonide/Formoterol 160/4.5 1 PUFF INH IH SCH ×2 (11:04→22:00)
[2020-10-07 12:18] LABS: ANA IgG by ELISA NONE DETECTED (None Detected); Serine Protease-3 Antibody 1 AU/mL (0-19)
[2020-10-07] MEDS: amLODIPine 5 MG TABLET PO SCH (20:20)
[2020-10-08 01:57] LABS: Hemoglobin 9.4 g/dL (12.9-16.9); Immature Granulocytes % 0.4 % (0-4)
[2020-10-08 01:59] LABS: Hematocrit 30.7 % (37.5-50.1); Immature Platelets 3.2 % (1.1-6.1); Lymphocytes # 0.2 K/mcL (0.6-4.6); Lymphocytes % 3.4 %; Mean Corpuscular HGB Conc 30.6 g/dL (31.6-35.5); Mean Corpuscular Hemoglobin 29.4 pg (28.0-33.3); Mean Corpuscular Volume 95.9 fL (83.0-100.0); Mean Platelet Volume 11.2 fL (9.4-12.4); Monocytes # 0.2 K/mcL (0.0-1.3); Monocytes % 3.8 %; Neutrophils # 5.2 K/mcL (1.6-8.9); Red Cell Distribution Width 15.4 % (11.5-14.5); Segmented Neutrophils % 92.4 %; White Blood Count 5.6 K/mcL (4.3-11.1)
[2020-10-08 02:04] LABS: Platelet Count 77 K/mcL (140-400)
[2020-10-08 02:12] LABS: Calcium 7.5 mg/dL (8.6-10.3); Magnesium 2.4 mg/dL (1.6-2.6); Potassium 4.5 mEq/L (3.5-5.1)
[2020-10-08] MEDS: Ipratropium/Albuterol Neb 3 ML IH SCH ×3 (04:13→15:34)
[2020-10-08 07:58] LABS: GBM IgG Multiplex Bead Assay 0 AU/mL (0-19); Glomerular Basement Memb IgG NEGATIVE (Negative)
[2020-10-08] MEDS: Insulin LISPRO 300 UNITS/3 ML VIAL SUBQ SCH ×2 (08:00→13:25)
[2020-10-08] MEDS: Metoprolol XL (24 HR) Succ 50 MG TAB.ER.24H PO SCH (09:47)
[2020-10-08] MEDS: Aspirin Enteric Coated 81 MG Tablet PO SCH (09:48)
[2020-10-08] MEDS: Folic Acid 1 MG TABLET PO SCH (09:48)
[2020-10-08] MEDS: Finasteride 5 MG TABLET PO SCH (09:48)
[2020-10-08] MEDS: Lactobacillus 1 EACH CAP.SPRINK PO SCH (09:48)
[2020-10-08] MEDS: predniSONE 20 MG TABLET PO SCH (09:49)
[2020-10-08] MEDS: Budesonide/Formoterol 160/4.5 1 PUFF INH IH SCH (10:20)
[2020-10-08] MEDS: Furosemide 40 MG/4 ML VIAL IVP SCH (10:27)
[2020-10-08 11:16] VITALS: BP 137/72
[2020-10-08 11:43] LABS: Adenovirus Not Detected (Not Detect); Bordetella Pertussis Not Detected (Not Detect); Chlamydophila pneumoniae Not Detected (Not Detect); Coronavirus 229E Not Detected (Not Detect); Coronavirus HKU1 Not Detected (Not Detect); Coronavirus NL63 Not Detected (Not Detect); Coronavirus OC43 Not Detected (Not Detect); Human Metapneumovirus Not Detected (Not Detect); Human Rhinovirus/Enterovirus Not Detected (Not Detect); Influenza A Subtype 2009 H1 Not Detected (Not Detect); Influenza B Not Detected (Not Detect); Mycoplasma pneumoniae Not Detected (Not Detect); Parainfluenza Virus 1 Not Detected (Not Detect); Parainfluenza Virus 2 Not Detected (Not Detect); Parainfluenza Virus 3 Not Detected (Not Detect); Parainfluenza Virus 4 Not Detected (Not Detect); Respiratory Syncytial Virus Not Detected (Not Detect); SARS-CoV-2 Not Detected (Not Detect)
== END 2020-10-08 15:53 | disposition other institution (70) | DRG 193 ==
LOC: 3ANU 23:58 → SUATTDRO 23:58 → INTOOBSV 23:58 → 2NNU 10-03 13:37 → SUATTDRO 10-04 15:34 → 2NNU 10-05 12:56 → 2NENU 10-07 16:44
PROVIDERS: ADMIT Family Medicine; ATTEND Pharmacist

== ENCOUNTER 2020-10-26 06:35 | Inpatient (IN) ==
[2020-10-26] MEDS ORDERED: Nitroglycerin 0.4 MG TAB.SUBL SL ONE (06:39)
[2020-10-26] MEDS ORDERED: Nitroglycerin 0.4 MG TAB.SUBL SL PRN (06:40)
[2020-10-26] MEDS ORDERED: Furosemide 40 MG/4 ML VIAL IVP ONE (06:40)
[2020-10-26 07:09] LABS: Basophils % 0.3 %; Eosinophils # 0.2 K/mcL (0.0-0.6); Eosinophils % 2.5 %; Hemoglobin 11.3 g/dL (12.9-16.9); Immature Granulocytes % 0.3 % (0-4); Lymphocytes % 14.8 %; Mean Corpuscular HGB Conc 29.7 g/dL (31.6-35.5); Mean Corpuscular Hemoglobin 29.4 pg (28.0-33.3); Mean Corpuscular Volume 98.7 fL (83.0-100.0); Mean Platelet Volume 10.7 fL (9.4-12.4); Monocytes # 0.5 K/mcL (0.0-1.3); Monocytes % 8.2 %; Neutrophils # 4.8 K/mcL (1.6-8.9); Platelet Count 144 K/mcL (140-400); Red Blood Count 3.85 M/mcL (4.19-5.50); Red Cell Distribution Width 14.4 % (11.5-14.5); Segmented Neutrophils % 73.9 %; White Blood Count 6.5 K/mcL (4.3-11.1)
[2020-10-26 07:19] LABS: Prothrombin Time 11.2 Seconds (9.4-12.1)
[2020-10-26 07:22] LABS: Activated Partial Thrombo Time 35.2 Seconds (26.0-36.0)
[2020-10-26] MEDS ORDERED: levoFLOXacin 750 MG/150 ML 750 MG/150 ML BAG IVPB ONE (07:22)
[2020-10-26 07:29] LABS: Troponin I 0.04 ng/mL (< 0.04)
[2020-10-26 07:32] LABS: VBG HCO3 38 mEq/L (21-27); VBG PCO2 131 mmHg (41-51); VBG PH 7.07 pH Units (7.32-7.42); VBG PO2 167 mmHg (25-50)
[2020-10-26 07:47] LABS: Albumin 3.4 g/dL (3.5-5.7); Albumin/Globulin Ratio 1.3 (1.1-2.2); Bilirubin,Direct 0.1 mg/dL (0.0-0.2); Bilirubin,Indirect 0.3 mg/dL (0.0-1.0); Bilirubin,Total 0.4 mg/dL (0.3-1.0); Calcium 8.5 mg/dL (8.6-10.3); Globulin 2.6 g/dL (2.4-3.5); Potassium 4.4 mEq/L (3.5-5.1)
[2020-10-26 07:55] LABS: Bacteria,Urine Few per hpf (None-Few); Bilirubin,Urine Negative (Negative); Blood,Urine Small (Negative); Clarity,Urine Clear (Clear); Color,Urine Light-Yellow (Yellow); Glucose,Urine (UA) Normal (Normal); Hyaline Casts,Urine Few per lpf (None Seen); Ketones,Urine Negative (Negative); Leukocyte Esterase,Urine Negative (Negative); Mucus,Urine Few per lpf (None-Few); Nitrite,Urine Negative (Negative); Protein,Urine >=300 mg/dL (Neg-Trace); RBC,Urine 0-3 per hpf (0-3); Specific Gravity,Urine 1.012 (1.010-1.025); Urobilinogen,Urine Normal (Normal); WBC,Urine 0-3 per hpf (0-3)
[2020-10-26] MEDS ORDERED: Acetaminophen 325 MG TABLET PO PRN (08:23)
[2020-10-26] MEDS ORDERED: Ondansetron 4 MG/2 ML VIAL IVP PRN (08:23)
[2020-10-26] MEDS ORDERED: methylPREDNISolone 125 MG/2 ML VIAL IVP ONE (08:26)
[2020-10-26] MEDS ORDERED: Aspirin 325 MG TABLET PO ONE (08:28)
[2020-10-26] MEDS ORDERED: *HR* OxyCODONE Immed Rel 5 MG TABLET PO PRN (09:10)
[2020-10-26] MEDS ORDERED: Morphine Sulfate 2 MG/ML SYRINGE IVP PRN (09:10)
[2020-10-26 09:24] LABS: VBG HCO3 37 mEq/L (21-27); VBG PCO2 76 mmHg (41-51); VBG PH 7.29 pH Units (7.32-7.42); VBG PO2 229 mmHg (25-50)
[2020-10-26 09:55] LABS: Influenza A PCR Negative (Negative); Influenza B PCR Negative (Negative); Resp. Syncytial Virus PCR Negative (Negative)
[2020-10-26 09:56] LABS: SARS-CoV-2 by PCR (In House) Negative (Negative)
[2020-10-26] MEDS: Ipratropium/Albuterol Neb 3 ML IH SCH ×5 (10:14→22:50)
[2020-10-26 12:16] LABS: VBG HCO3 39 mEq/L (21-27); VBG PCO2 90 mmHg (41-51); VBG PH 7.24 pH Units (7.32-7.42); VBG PO2 53 mmHg (25-50)
[2020-10-26 12:50] LABS: Troponin I 0.14 ng/mL (< 0.04)
[2020-10-26] MEDS: *HR* Heparin 5,000 UNIT/ML VIAL SQ SCH ×2 (14:45→21:06)
[2020-10-26 17:13] LABS: VBG HCO3 39 mEq/L (21-27); VBG PCO2 73 mmHg (41-51); VBG PH 7.33 pH Units (7.32-7.42); VBG PO2 30 mmHg (25-50)
[2020-10-26 17:15] LABS: Lactate Dehydrogenase 151 Units/L (140-271); Total Protein 5.5 g/dL (6.4-8.9)
[2020-10-26] MEDS: MethylPREDNISolone 40 MG/ML VIAL IVP SCH (17:40)
[2020-10-26 19:09] LABS: RBC,Pleural Fluid 3000 RBC/mcL
[2020-10-26 19:23] LABS: LDH,Pleural Fluid 85 Units/L (No Ref Range); Total Protein,Pleural Fluid < 2.0 g/dL
[2020-10-26 21:08] LABS: Basophils,Pleural Fluid 0 %; Eosinophils,Pleural Fluid 0 %
[2020-10-26 21:09] LABS: Appearance of Pleural Fl Hazy (Clear)
[2020-10-27] MEDS: Ipratropium/Albuterol Neb 3 ML IH SCH ×6 (03:59→22:58)
[2020-10-27] MEDS: MethylPREDNISolone 40 MG/ML VIAL IVP SCH ×2 (05:13→17:07)
[2020-10-27] MEDS: *HR* Heparin 5,000 UNIT/ML VIAL SQ SCH ×3 (05:13→20:41)
[2020-10-27 08:31] LABS: Red Cell Distribution Width 13.9 % (11.5-14.5)
[2020-10-27 08:33] LABS: Hemoglobin 9.5 g/dL (12.9-16.9); Immature Platelets 3.6 % (1.1-6.1); Mean Corpuscular HGB Conc 31.7 g/dL (31.6-35.5); Mean Corpuscular Hemoglobin 29.8 pg (28.0-33.3); Mean Platelet Volume 11.2 fL (9.4-12.4); Red Blood Count 3.19 M/mcL (4.19-5.50); White Blood Count 2.1 K/mcL (4.3-11.1)
[2020-10-27 08:55] LABS: Calcium 8.3 mg/dL (8.6-10.3); Potassium 4.5 mEq/L (3.5-5.1)
[2020-10-27] MEDS ORDERED: Azithromycin 500 MG in 0.9 % Sodium Chloride 250 ML IVPB SCH (09:00)
[2020-10-27] MEDS ORDERED: Aspirin 81 MG TAB.CHEW PO SCH (09:00)
[2020-10-27] MEDS ORDERED: levoFLOXacin 750 MG/150 ML 750 MG/150 ML BAG IVPB SCH (09:00)
[2020-10-27] MEDS: Cyanocobalamin (B-12) 1,000 MCG TABLET PO SCH (09:34)
[2020-10-27] MEDS: Finasteride 5 MG TABLET PO SCH (09:34)
[2020-10-27] MEDS: Folic Acid 1 MG TABLET PO SCH (09:34)
[2020-10-27] MEDS: Aspirin Enteric Coated 81 MG Tablet PO SCH (09:35)
[2020-10-27] MEDS: Metoprolol XL (24 HR) Succ 50 MG TAB.ER.24H PO SCH (09:35)
[2020-10-27] MEDS: Budesonide/Formoterol 160/4.5 1 PUFF INH IH SCH ×2 (11:13→19:55)
[2020-10-27] MEDS: Furosemide 20 MG/2 ML VIAL IVP SCH ×2 (13:24→20:40)
[2020-10-27] MEDS: Artificial Tears SOLN 15 ML BOTTLE BOTH EYES SCH ×2 (17:06→20:55)
[2020-10-27] MEDS: hydrALAZINE 25 MG TABLET PO SCH (20:45)
[2020-10-28 02:10] LABS: Calcium 7.8 mg/dL (8.6-10.3); Potassium 4.7 mEq/L (3.5-5.1)
[2020-10-28] MEDS: Ipratropium/Albuterol Neb 3 ML IH SCH ×3 (03:22→11:30)
[2020-10-28] MEDS: *HR* Heparin 5,000 UNIT/ML VIAL SQ SCH (05:49)
[2020-10-28] MEDS: Budesonide/Formoterol 160/4.5 1 PUFF INH IH SCH (07:20)
[2020-10-28] MEDS ORDERED: predniSONE 20 MG TABLET PO SCH (09:00)
[2020-10-28] MEDS: Metoprolol XL (24 HR) Succ 50 MG TAB.ER.24H PO SCH (09:40)
[2020-10-28] MEDS: Aspirin Enteric Coated 81 MG Tablet PO SCH (09:40)
[2020-10-28] MEDS: Finasteride 5 MG TABLET PO SCH (09:41)
[2020-10-28] MEDS: hydrALAZINE 25 MG TABLET PO SCH (09:42)
[2020-10-28] MEDS: Artificial Tears SOLN 15 ML BOTTLE BOTH EYES SCH (09:42)
[2020-10-28] MEDS: Cyanocobalamin (B-12) 1,000 MCG TABLET PO SCH (09:42)
[2020-10-28] MEDS: Folic Acid 1 MG TABLET PO SCH (09:42)
[2020-10-28] MEDS: Furosemide 20 MG/2 ML VIAL IVP SCH (09:56)
[2020-10-28 11:08] VITALS: BP 144/76
[2020-10-29] MEDS ORDERED: levoFLOXacin 750 MG/150 ML 750 MG/150 ML BAG IVPB SCH (09:00)
[2020-10-29] MEDS ORDERED: levoFLOXacin 750 MG TABLET PO SCH (09:00)
== END 2020-10-28 13:36 | disposition hospice, home (50) | DRG 280 ==
LOC: 2NENU 06:35 → EMEROOARM 06:35 → 2NENU 09:50 → SUATTDRO 10-27 14:24
PROVIDERS: ADMIT Internal Medicine; ATTEND Internal Medicine